=== PATIENT | female | born 1925 | race Caucasian/White ===

== ENCOUNTER 2017-03-17 21:42 | Inpatient (IN) ==
--- NOTE | 2017-03-17 22:19 | Emergency Department Note ---
Disposition Clinical Impression: Small bowel obstruction Inguinal hernia unilateral, non-recurrent Qualifiers: Obstruction and gangrene presence: with obstruction but without gangrene Recurrence: non-recurrent Qualified Code(s): K40.30 - Unilateral inguinal hernia , with obstruction, without gangrene, not specified as recurrent Disposition: Admitted As Inpatient Condition: Fair Time of Disposition: 05:28 Abdominal Pain HPI - General Chief Complaint: ED Abdominal Pain Stated Complaint: lower abdominal pain Time Seen by Provider: 03/17/17 21:55 Source: patient Nursing Notes Reviewed: Yes Vital Signs Reviewed: Yes - History of Present Illness HPI Narrative: Mrs. Sharp, 89-year-old female, presents from home for evaluation of abdominal pain and right lower quadrant "bump." Patient notes she had a [employer] salad this afternoon after which she had nausea and abdominal cramping. After this, she noticed a bump below her right inguinal ligament which was painful to touch. She otherwise has had no change in bowel or bladder , no fever, no chills. PMH: Hypertension Abdominal surgical history: Hysterectomy status post uterine prolapse. Pain Scale: 9 - Related Data Allergies Allergy/AdvReac Type Severity Reaction Status Date / Time Sulfa (Sulfonamide Allergy Hallucinati Verified 03/17/17 21:53 Antibiotics) ng All systems ED: reviewed and negative except as stated. Abdominal Pain PMH - Past Medical History Medical history: Reports: hypertension Female Surgical History: Reports: hysterectomy Psychiatric history: Reports: no psych history - Social History Smoking status: Never smoker Alcohol use: Reports: none Drug use: Reports: none Physical Exam Vital Signs Reviewed General: Patient is alert, oriented, and in no acute distress. HEENT: No facial asymmetry. Head is normocephalic and atraumatic. PERRL, EOMI. mucosa moist. Trachea midline. Cardiovascular: Heart regular rate and rhythm without clicks, rubs, gallops, or murmurs. No JVD. PMI nondisplaced. Respiratory: Symmetric chest rise with good respiratory effort. Bilateral breath sounds are clear without wheezing, crackles, or rhonchi. Abdomen: Bowel sounds present hyperactive x-4 quadrants. Abdomen is soft, nondistended, and nontender. No organomegaly noted. Palpable femoral hernia on the right side which is taut, painful, not reducible, bowel sounds present within. Psych: Patient's affect is appropriate for situation. - General Limitations: no limitations General appearance: alert Course Course Narrative: Patient's physical exam is concerning for incarcerated right femoral hernia. She has never noticed before, bowel sounds are present, it is painful to palpation, taut, and nonreducible. CT abdomen and pelvis with IV and oral contrast is concerning for incarcerated right femoral hernia as well as small bowel obstruction. Patient is not having any nausea or vomiting at this time. She remains comfortable. I discussed the patient with the on-call general surgeon, Dr. Swain, who agrees to accept the patient with plan to take her to the operatory theater tonight. I discussed all findings as well as potential surgical plan with patient and her daughter and granddaughter at bedside. Discussed in detail the pathophysiology of incarcerated hernia versus strangulate hernia as well as small bowel obstruction. I answered all her questions since they have no additional questions or concerns at this time. Abdomen/Pelvis CT 03/18/17 01:00 IMPRESSION: Incarcerated right femoral hernia containing a loop of small bowel with associated upstream small bowel obstruction. The upstream small bowel measures up to 3.2 cm in diameter with air-fluid levels. D/ / Hong Michael MD / Hong Michael MD Interpreting Provider: Hong Michael MD Vital Signs Temperature 97.9 F 03/17/17 21:49 Pulse Rate 71 03/17/17 21:49 Respiratory Rate 18 03/17/17 21:49 Blood Pressure 161/70 03/17/17 21:49 O2 Sat by Pulse Oximetry 97 03/17/17 21:49 Temperature 97.8 F 03/18/17 04:12 Pulse Rate 65 03/18/17 04:12 Respiratory Rate 17 03/18/17 04:12 Blood Pressure 157/75 03/18/17 04:12 O2 Sat by Pulse Oximetry 98 03/18/17 04:12 Oxygen Delivery Oxygen Delivery Room Air Abdominal Pain - Lab Data Result diagrams: 03/17/17 23:08 03/17/17 23:08 Lab Results 03/17/17 03/17/17 03/17/17 Range/Units 22:08 23:08 23:08 WBC 8.3 (4.3-11.1) K/mcL RBC 4.64 (3.82-4.97) M/mcL Hgb 14.7 (11.5-15.4) g/dL Hct 40.9 (35.3-44.9) % MCV 88.1 (83.0-100.0) fL MCH 31.7 (28.0-33.3) pg MCHC 35.9 H (31.6-35.5) g/dL RDW 12.4 (11.5-14.5) % Plt Count 263 (140-400) K/mcL MPV 9.8 (9.4-12.4) fL Immature Gran % 0.6 (0-4) % Seg Neutrophils % 88.7 % Lymphocytes % 6.9 % Monocytes % 3.1 % Eosinophils % 0.2 % Basophils % 0.5 % Neutrophils # 7.4 (1.6-8.9) K/mcL Lymphocytes # 0.6 (0.6-4.6) K/mcL Monocytes # 0.3 (0.0-1.3) K/mcL Eosinophils # 0.0 (0.0-0.6) K/mcL Basophils # 0.0 (0.0-0.2) K/mcL Sodium 137 (136-145) mEq/L Potassium 3.4 L (3.5-4.5) mEq/L Chloride 102 (98-109) mEq/L Carbon Dioxide 22 (19-29) mEq/L BUN 20 (7-20) mg/dL Creatinine 0.96 (0.57-1.11) mg/dL Est GFR ( Amer) > 60 (> 60) Est GFR (Non-Af Amer) 55 L (> 60) BUN/Creatinine Ratio 21 (6-26) Glucose 134 H (70-99) mg/dL Calculated Osmolality 289 (280-300) Lactic Acid (0.5-2.2) mmol/L Calcium 9.4 (8.6-10.8) mg/dL Total Bilirubin 0.5 (0.2-1.2) mg/dL Direct Bilirubin 0.2 (0.0-0.5) mg/dL Indirect Bilirubin 0.3 (0.0-1.2) mg/dL AST 28 (5-34) Units/L ALT 17 (0-55) Units/L Alkaline Phosphatase 101 (38-126) Units/L Serum Total Protein 7.9 (6.0-8.3) g/dL Albumin 4.2 (3.5-5.0) g/dL Globulin 3.7 H (2.4-3.5) g/dL Albumin/Globulin Ratio 1.1 (1.1-2.2) Lipase 40 (8-78) Units/L Urine Color Yellow (Yellow) Urine Clarity Clear (Clear) Urine pH 7.0 (5.0-8.0) pH Units Ur Specific [place] 1.021 (1.010-1.025) Urine Protein Negative (Neg-Trace) mg/dL Urine Glucose (UA) Normal (Normal) mg/dL Urine Ketones 40 H (Negative) mg/dL Urine Blood Small H (Negative) Urine Nitrite Negative (Negative) Urine Bilirubin Negative (Negative) Urine Urobilinogen Normal (Normal) mg/dL Ur Leukocyte Esterase Moderate H (Negative) Urine Microscopic RBC 0-3 (0-3) per hpf Urine Microscopic WBC 15-30 H (0-3) per hpf Ur Renal Epithelial Cell Few (None-Few) per hpf Urine Bacteria Few (None-Few) per hpf Ur Culture Indicated? YES A (NO) 03/17/17 Range/Units 23:08 WBC (4.3-11.1) K/mcL RBC (3.82-4.97) M/mcL Hgb (11.5-15.4) g/dL Hct (35.3-44.9) % MCV (83.0-100.0) fL MCH (28.0-33.3) pg MCHC (31.6-35.5) g/dL RDW (11.5-14.5) % Plt Count (140-400) K/mcL MPV (9.4-12.4) fL Immature Gran % (0-4) % Seg Neutrophils % % Lymphocytes % % Monocytes % % Eosinophils % % Basophils % % Neutrophils # (1.6-8.9) K/mcL Lymphocytes # (0.6-4.6) K/mcL Monocytes # (0.0-1.3) K/mcL Eosinophils # (0.0-0.6) K/mcL Basophils # (0.0-0.2) K/mcL Sodium (136-145) mEq/L Potassium (3.5-4.5) mEq/L Chloride (98-109) mEq/L Carbon Dioxide (19-29) mEq/L BUN (7-20) mg/dL Creatinine (0.57-1.11) mg/dL Est GFR ( Amer) (> 60) Est GFR (Non-Af Amer) (> 60) BUN/Creatinine Ratio (6-26) Glucose (70-99) mg/dL Calculated Osmolality (280-300) Lactic Acid 0.9 (0.5-2.2) mmol/L Calcium (8.6-10.8) mg/dL Total Bilirubin (0.2-1.2) mg/dL Direct Bilirubin (0.0-0.5) mg/dL Indirect Bilirubin (0.0-1.2) mg/dL AST (5-34) Units/L ALT (0-55) Units/L Alkaline Phosphatase (38-126) Units/L Serum Total Protein (6.0-8.3) g/dL Albumin (3.5-5.0) g/dL Globulin (2.4-3.5) g/dL Albumin/Globulin Ratio (1.1-2.2) Lipase (8-78) Units/L Urine Color (Yellow) Urine Clarity (Clear) Urine pH (5.0-8.0) pH Units Ur Specific [place] (1.010-1.025) Urine Protein (Neg-Trace) mg/dL Urine Glucose (UA) (Normal) mg/dL Urine Ketones (Negative) mg/dL Urine Blood (Negative) Urine Nitrite (Negative) Urine Bilirubin (Negative) Urine Urobilinogen (Normal) mg/dL Ur Leukocyte Esterase (Negative) Urine Microscopic RBC (0-3) per hpf Urine Microscopic WBC (0-3) per hpf Ur Renal Epithelial Cell (None-Few) per hpf Urine Bacteria (None-Few) per hpf Ur Culture Indicated? (NO) Attestation Statement - Attestation Attestation: I, Ilan Curiel MD, personally evaluated this patient and discussed their management with the resident physician. I reviewed the resident's note and agree with the documented findings, medical decision making, and plan of care. 89-year-old female presents to the emergency department with a complaint of generalized lower abdominal pain and nausea which started about 2 hours prior to arrival. She also complains of a firm tender knot in the right inguinal region. She has never noticed this before. Patient states the pain started about an hour after she ate a large salad. She has had some dry heaves. Patient states that she had a normal bowel movement this morning. No melena, hematemesis, or hematochezia. No hematuria or dysuria. No flank pain. On examination patient is a well-developed thin elderly female in no acute distress but does appear to be in moderate discomfort. She is alert and oriented 3. There is no cyanosis or diaphoresis. Breath sounds are clear and equal bilaterally. Heart regular rate and rhythm. Abdomen is soft with increased bowel sounds. Mild to moderate diffuse tenderness. There is a firm tender incarcerated right inguinal hernia which I was unable to reduce with direct pressure. Labs reviewed. CT of the abdomen and pelvis with IV and oral contrast: Incarcerated right femoral hernia containing a loop of small bowel with associated upstream small bowel obstruction. The upstream small bowel measures up to 3.2 cm in diameter with air-fluid levels. The surgeon on-call, Dr. Lam, was consulted and will see the patient in the emergency department.
[2017-03-17] MEDS ORDERED: *HR* Morphine 2 MG/ML SYRINGE IVP ONE (22:57)
[2017-03-17 23:10] LABS: Bilirubin,Urine Negative (Negative); Blood,Urine Small (Negative); Clarity,Urine Clear (Clear); Color,Urine Yellow (Yellow); Glucose,Urine (UA) Normal (Normal); Ketones,Urine 40 mg/dL (Negative); Leukocyte Esterase,Urine Moderate (Negative); Nitrite,Urine Negative (Negative); Protein,Urine Negative (Neg-Trace); Specific Gravity,Urine 1.021 (1.010-1.025); Urobilinogen,Urine Normal (Normal)
[2017-03-17] MEDS: Ondansetron 4 MG/2 ML VIAL IVP ONE (23:11)
[2017-03-17 23:15] LABS: Basophils % 0.5 %; Eosinophils % 0.2 %; Hematocrit 40.9 % (35.3-44.9); Hemoglobin 14.7 g/dL (11.5-15.4); Immature Granulocytes % 0.6 % (0-4); Lymphocytes # 0.6 K/mcL (0.6-4.6); Lymphocytes % 6.9 %; Mean Corpuscular HGB Conc 35.9 g/dL (31.6-35.5); Mean Corpuscular Hemoglobin 31.7 pg (28.0-33.3); Mean Corpuscular Volume 88.1 fL (83.0-100.0); Mean Platelet Volume 9.8 fL (9.4-12.4); Monocytes # 0.3 K/mcL (0.0-1.3); Monocytes % 3.1 %; Neutrophils # 7.4 K/mcL (1.6-8.9); Platelet Count 263 K/mcL (140-400); Red Blood Count 4.64 M/mcL (3.82-4.97); Red Cell Distribution Width 12.4 % (11.5-14.5); Segmented Neutrophils % 88.7 %
[2017-03-17 23:23] LABS: Renal Epithelial Cells,Urine Few per hpf (None-Few); WBC,Urine 15-30 per hpf (0-3)
[2017-03-17 23:24] LABS: Bacteria,Urine Few per hpf (None-Few); RBC,Urine 0-3 per hpf (0-3)
--- NOTE | 2017-03-17 23:54 | General Surg History&Physical ---
Date of Encounter: 03/17/17 Time of Encounter: 23:52 Assessment and Plan (1) Inguinal hernia unilateral, non-recurrent Current Visit: Yes Status: Acute 89F with incarcerated inguinal hernia on the right; no overlying skin changes; - NPO - IVF - abx - CT scan to assess for evidence of ischemia - plan for OR for lap hernia repair possible open The assessment and plan as outlined above was discussed with the patient and/or family members who expressed understanding and agreement. All questions were answered. Qualifiers: Obstruction and gangrene presence: without obstruction or gangrene Recurrence: non-recurrent Qualified Code(s): K40.90 - Unilateral inguinal hernia, without obstruction or gangrene, not specified as recurrent History of Present Illness Chief complaint: Right groin pain HPI: Ms. Sharp is a 89 year old female with PMH significant for HTN who presents with sudden onset of R groin pain and small lump in her Right groin. The pain started after dinner. It is localized to the right groin with no associated nausea, vomiting, or obstructive symptoms; She does report mild abdominal pain within lower abdomen. No fevers, chills, chest pain nor shortness of breath. Due to the pain, the patient came to the ED for further evaluation. Of note, this is the first time the patient has ever had pain like this. Past Med Surg Social Fam HX - Past Medical History Medical history: hypertension Psychiatric history: no psych history - Past Surgical History Surgical History: hysterectomy, other (vaginal/uterine prolapse) - Social History Smoking Status: Never smoker Alcohol use: none Drug use: none Medications and Allergies 3 Allergy/AdvReac Type Severity Reaction Status Date / Time Sulfa (Sulfonamide Allergy Hallucinati Verified 03/17/17 21:53 Antibiotics) ng Review of Systems All systems PM: A 10-system review of systems was performed and is negative for pertinent findings except as documented above in the HPI. General Surgery Exam Initial Vital Signs Temp Pulse Resp BP Pulse Ox 97.9 F 71 18 161/70 97 03/17/17 21:49 03/17/17 21:49 03/17/17 21:49 03/17/17 21:49 03/17/17 21:49 - General physical appearance well developed, well nourished, moderate pain - Eyes normal ocular movement - Respiratory normal expansion, normal respiratory effort, clear to auscultation - Cardiovascular Cardiovascular exam: Present: RRR - Abdomen Abdomen general surgery: Present: soft, tender Abdominal Tenderness: Present: RLQ, LLQ, suprapubic Hernia: Present: incarcerated, inguinal (no overlying skin changes; ) - Genitourinary Present: normal external genitalia - Integumentary Integumentary general surgery: Present: warm and dry, other (no erythema or overlying skin changes along groin) - Neurologic Present: CN 2-12 grossly intact - Psychiatric Psychiatric general surgery: Present: A&Ox3 Results - Labs 03/17/17 23:08 Abnormal lab results MCHC 35.9 g/dL (31.6-35.5) H 03/17/17 23:08 Urine Ketones 40 mg/dL (Negative) H 03/17/17 22:08 Urine Blood Small (Negative) H 03/17/17 22:08 Ur Leukocyte Esterase Moderate (Negative) H 03/17/17 22:08 Urine Microscopic WBC 15-30 per hpf (0-3) H 03/17/17 22:08 Ur Culture Indicated? YES (NO) A 03/17/17 22:08 All other labs normal. - Imaging CT scan - abdomen: pending CT scan - pelvis: pending
[2017-03-17] MEDS ORDERED: Ondansetron 4 MG/2 ML VIAL IVP PRN (23:57)
[2017-03-17] MEDS ORDERED: *HR* Morphine 2 MG/ML SYRINGE IVP PRN (23:57)
[2017-03-18 00:17] LABS: Alanine Aminotransferase 17 Units/L (0-55); Albumin 4.2 g/dL (3.5-5.0); Albumin/Globulin Ratio 1.1 (1.1-2.2); Alkaline Phosphatase 101 Units/L (38-126); Aspartate Amino Transferase 28 Units/L (5-34); BUN/Creatinine Ratio 21 (6-26); Bilirubin,Direct 0.2 mg/dL (0.0-0.5); Bilirubin,Indirect 0.3 mg/dL (0.0-1.2); Bilirubin,Total 0.5 mg/dL (0.2-1.2); Blood Urea Nitrogen 20 mg/dL (7-20); Calcium 9.4 mg/dL (8.6-10.8); Carbon Dioxide 22 mEq/L (19-29); Chloride 102 mEq/L (98-109); Globulin 3.7 g/dL (2.4-3.5); Glucose 134 mg/dL (70-99); Lipase 40 Units/L (8-78); Osmolality,Calculated 289 (280-300); Potassium 3.4 mEq/L (3.5-4.5); Sodium 137 mEq/L (136-145); Total Protein 7.9 g/dL (6.0-8.3); eGFR For African Americans > 60 (> 60); eGFR For Non-African Americans 55 (> 60)
[2017-03-18] MEDS: Piperacillin/Tazobactam 3.375 GM in D5% in Water (Mini-Bag+) 100 ML IVPB SCH ×3 (01:11→16:33)
[2017-03-18] MEDS ORDERED: *HR* Enoxaparin 40 MG/0.4 ML SYRINGE SQ SCH (06:00)
--- NOTE | 2017-03-18 06:28 | Anesthesia Evaluation PreOp ---
Date of Encounter: 03/18/17 Time of Encounter: 06:26 - Past History Planned Operation: Open Right Inguinal Hernia Repair Cardiac History: HTN Anesthesia History: Past Anesthesia (hysterectomy, other (vaginal/uterine prolapse)) : No Alcohol Use: none Drug use: none Medications and Allergies 3 Allergy/AdvReac Type Severity Reaction Status Date / Time Sulfa (Sulfonamide Allergy Hallucinati Verified 03/17/17 21:53 Antibiotics) ng - Meds/Allergy Pre-op Review Medications Reviewed: Yes Allergies Reviewed: Yes Beta Blockers on Current Med List: No Anesthesia Results - Labs 03/17/17 23:08 03/17/17 23:08 Anesthesia Exam O2 Sat Height 1.57 m Weight 56.1 kg Weight 63.503 kg O2 Sat by Pulse Oximetry 98 O2 Sat by Pulse Oximetry 96 O2 Sat by Pulse Oximetry 97 O2 Sat by Pulse Oximetry 97 Vital Signs Temp Pulse Resp BP Pulse Ox 97.9 F 71 18 161/70 97 03/17/17 21:49 03/17/17 21:49 03/17/17 21:49 03/17/17 21:49 03/17/17 21:49 Height: 5'2'' Weight: 123# NPO (# of Hours): > 8 hrs Pain Scale: 0 Pain Scale Used: Numeric (1 - 10)
[2017-03-18] MEDS ORDERED: *HR* Propofol 200 MG/20 ML VIAL IVP ONE (06:38)
[2017-03-18] MEDS ORDERED: *HR* FentaNYL (PF) 100 MCG/2 ML VIAL ONE (06:38)
[2017-03-18] MEDS ORDERED: *HR* Succinylcholine 200 MG/10 ML VIAL IVP ONE (06:39)
[2017-03-18] MEDS ORDERED: Lidocaine -MPF 2% 2 ML VIAL ONE (06:39)
[2017-03-18] MEDS ORDERED: *HR* Rocuronium Bromide 50 MG/5 ML VIAL ONE (06:39)
[2017-03-18] MEDS ORDERED: Bupivacaine/EPI 1:200k 0.5%PF 10 ML VIAL ONE (06:40)
--- NOTE | 2017-03-18 07:27 | Anesthesia Evaluation PreOp ---
Date of Encounter: 03/18/17 Time of Encounter: 07:19 - Past History Planned Operation: Incarcerated Hernia Repair Cardiac History: HTN Pulmonary History: Denies Any Significant HX PEGA DEVELOPER History: Denies Any Significant HX Other Medical History: Denies Any Significant HX Anesthesia History: No Prior Anesthetic Complications, Past Anesthesia ( hysterectomy) Alcohol Use: none Drug use: none Medications and Allergies amLODIPine [Norvasc] 7.5 mg PO DAILY 03/18/17 [History] 3 Allergy/AdvReac Type Severity Reaction Status Date / Time Sulfa (Sulfonamide Allergy Hallucinati Verified 03/17/17 21:53 Antibiotics) ng - Meds/Allergy Pre-op Review Medications Reviewed: Yes Allergies Reviewed: Yes Beta Blockers on Current Med List: No Anesthesia Results - Labs 03/17/17 23:08 03/17/17 23:08 - Imaging EKG: report reviewed (03/18/2017 SR, occasional PVC's, borderline LAD, low QRS in precordial leads) Anesthesia Exam Vital Signs/O2 Sat, Most Current Temp Pulse Resp BP Pulse Ox 98.3 F 65 16 148/66 93 03/18/17 06:58 03/18/17 06:58 03/18/17 06:58 03/18/17 06:58 03/18/17 06:58 Height: 5'2''/1.57 m Weight: 123 lbs/56.1 kg NPO (# of Hours): 8 Pain Scale: 0 Pain Scale Used: Numeric (1 - 10) - HEENT Pupil (Motor): EOMI Mallampati: II Teeth: Edentulous Oral Opening: Greater than 3 - PEGA DEVELOPER LOC: Oriented PEGA DEVELOPER Motor: Normal RUE, Normal LUE, Normal RLE, Normal LLE, Normal Face PEGA DEVELOPER Sensory: Normal: RUE, LUE, RLE, LLE, Face - Cardiac Rhythm: Regular Murmur: Systolic - Pulmonary Breath Sounds: bilateral Clear Respiratory Effort: Symmetrical Anesthesia Assess/Plan ASA Score: 2, E Modified [place] Scale for Level of Consciousness: Cooperative, oriented, and tranquil Anesthetic Plan: General Monitoring Plan: Standard Monitors Recovery Plan: PACU
[2017-03-18] MEDS ORDERED: *HR* Morphine 10 MG/ML VIAL ONE (07:36)
[2017-03-18] MEDS ORDERED: Lidocaine -MPF 4% 5 ML AMPUL ONE (07:45)
[2017-03-18] MEDS ORDERED: Dexamethasone 4 MG/ML VIAL ONE (07:45)
[2017-03-18] MEDS ORDERED: Ondansetron 4 MG/2 ML VIAL ONE (07:45)
[2017-03-18] MEDS ORDERED: EPHEDrine 50 MG/ML VIAL ONE (07:47)
[2017-03-18] MEDS ORDERED: *HR* Phenylephrine 10 MG/ML VIAL ONE (07:47)
[2017-03-18] MEDS ORDERED: Ondansetron 4 MG/2 ML VIAL IVP ONE (08:02)
[2017-03-18] MEDS ORDERED: *HR* Morphine 2 MG/ML SYRINGE IVP PRN (08:02)
--- NOTE | 2017-03-18 08:52 | Operative Note ---
Date of procedure: 03/18/17 Pre-op diagnosis: Incarcerated femoral hernia Post-op diagnosis: other (Incarcerated femoral hernia with necrotic small bowel) Procedure: #1 exploratory laparotomy #2 small bowel resection #3 repair of right femoral hernia Anesthesia: ISATU Surgeon: Tacos Starks Estimated blood loss (cc): 20 Specimen: Necrotic small bowel Condition: stable Disposition: PACU Procedure in Detail: After informed consent patient is taken to the major operative suite and placed in supine position and given adequate general anesthetic. The groins and abdomen were prepped and draped in sterile fashion utilizing ChloraPrep standard draping techniques. Timeout was taken patient was identified. I made an oblique incision and dissected down to the incarcerated femoral hernia. I opened the femoral hernia sac. The small bowel was completely necrotic. I then made a lower abdominal midline incision and entered the abdominal cavity. There was a complete bowel obstruction at the level of the femoral hernia. I gently dilated the opening of the hernia with my index finger and I was able to reduce the necrotic small bowel back into the abdomen without perforating it. I then divided the small bowel proximal and distal to the area of necrosis with HEBERT and I divided the mesentery clamps and hemostatic ligatures. HEBERT was then used to create an anastomosis between the antimesenteric portion of the proximal and distal small bowel. The resulting enterotomy was closed with a TA 60. I circumferentially reinforced the anastomosis with interrupted 3-0 silk. The mesentery was closed with interrupted 3-0 silk. I performed a Javon's ligament repair suturing the inguinal ligament to Javon' s ligament obliterating the space of the femoral hernia was located. Hernia repair was performed with 2 stitches of 0 Nurolon. This completely obliterated the space. The lateral wall of the bladder was involved in the hernia sac and the thigh. This appeared to just be the peritoneal coverage on the bladder and the bladder did not appear to be entered. I closed the peritoneum in 2 layers with interrupted Vicryl. There was no spillage of urine. Any I do not think the bladder was entered. The groin incision was then closed with interrupted Vicryl in the midline was closed with looped 0 PDS and Vicryl. The skin was closed with skin clips. She tolerated the procedure well.
[2017-03-18] MEDS: Ondansetron 4 MG/2 ML VIAL IVP ONE (09:03)
--- NOTE | 2017-03-18 09:17 | Anesthesia Evaluation Post Op ---
Date of Encounter: 03/18/17 Time of Encounter: 09:16 - Vital Signs Vital Signs: Vital Signs/O2 Sat/Glucose, Most Recent Temp Pulse Resp BP Pulse Ox 98.8 F 75 15 158/75 96 03/18/17 08:52 03/18/17 09:12 03/18/17 09:12 03/18/17 09:12 03/18/17 09:12 - Lungs Lungs: Clear Ascult./Percussion - Airway Airway: Non-obstructed - Cardiovascular Regular Rate - Mental Status Mental Status: Alert & Oriented, Answers Appropriately - Pain Pain Scale: 0 Pain Scale used: Numeric (1 - 10) - Nausea Vomiting Nausea Vomiting: Not Present - Hydration Hydration: NPO - Discharge PostOp Status: Transfer Patient to floor
[2017-03-18] MEDS ORDERED: 0.9 % Sodium Chloride 1,000 ML ONE (11:27)
--- NOTE | 2017-03-18 17:00 | Electrocardiograph Report ---
[place] [id number] Test Date: 2017-03-18 Pat Name: Tanya Sharp Department: 103 Room: 3A11 Gender: F [place] Clerk: : [id number] Requested By: Tacos Starks Order Number: [id number] Reading MD: Eliz Donovan Measurements Intervals Dyke Rate: 61 P: 32 SD: 196 QRS: -22 QRSD: 93 T: 64 QT: 426 QTc: 430 Interpretive Statements SINUS RHYTHM BORDERLINE LEFT AXIS DEVIATION [QRS AXIS < -20] Electronically Signed On 03-18-2017 16:59:30 EDT by Eliz Donovan
[2017-03-19] MEDS: *HR* Morphine 2 MG/ML SYRINGE IVP PRN ×2 (00:06→14:00)
[2017-03-19] MEDS: 0.9 % Sodium Chloride 1,000 ML IVC SCH ×2 (00:06→14:01)
[2017-03-19] MEDS: Piperacillin/Tazobactam 3.375 GM in D5% in Water (Mini-Bag+) 100 ML IVPB SCH ×3 (00:07→16:12)
[2017-03-19] MEDS ORDERED: *HR* Enoxaparin 30 MG/0.3 ML SYRINGE SQ SCH (06:00)
[2017-03-19] MEDS: *HR* OxyCODONE/APAP 5/325 TABLET PO PRN ×2 (09:50→20:20)
[2017-03-19 11:36] LABS: Calcium 8.4 mg/dL (8.6-10.8); Potassium 3.6 mEq/L (3.5-4.5)
--- NOTE | 2017-03-19 13:20 | General Surgery Progress Note ---
<SundayDaniella Casey - Last Filed: 03/19/17 13:15> Date of Encounter: 03/19/17 Time of Encounter: 11:00 - Assessment and Plan (1) Inguinal hernia unilateral, non-recurrent Current Visit: Yes Status: Acute POD one: #1 exploratory laparotomy #2 small bowel resection #3 repair of right femoral hernia 03/18/2017 by Levon Starks Incisions are clean, dry, and intact. Bowel sounds are noted. Patient request ice chips. Plan: 1. Cover incisions with dry dressing tape to secure for comfort. 2. 300 mL clear liquids per shift 3. Out of bed to chair TID with assistance 4. Continue supportive care and discomfort management 5. Continue G.I. prophylaxis 6. DVT prophylaxis heparin 7Q 5000 units twice daily 7. Resume amlodipine 8. Continue IV antibiotics 9. PT/OT for discharge planning Qualifiers: Obstruction and gangrene presence: with obstruction but without gangrene Recurrence: non-recurrent Qualified Code(s): K40.30 - Unilateral inguinal hernia, with obstruction, without gangrene, not specified as recurrent (2) Small bowel obstruction Current Visit: Yes Status: Acute See above (3) Decreased activity tolerance Current Visit: Yes Status: Acute Consult PT/OT for activity, safety, and DC planning. (4) DVT prophylaxis Current Visit: Yes Status: Acute Begin heparin injections 5000 units subacute tonight. EPCDs while in bed. Ambulate TID per PT and OT recommendations. Out of bed 3 times daily to the chair with assistance. Subjective Patient reports: no new complaints, feels better, still having pain, pain is less, tolerating liquids well, voiding w/o difficulty, no flatus, no bowel movement, afebrile Objective Vital Signs - Last 8 Hours Temp Pulse Resp BP Pulse Ox 03/19/17 11:00 97.7 F 75 16 148/79 91 03/19/17 06:22 98.3 F 85 16 145/74 92 Intake and Output 03/18/17 03/19/17 03/19/17 23:59 07:59 15:59 Intake Total 100 / 100 200 / 200 0 / 0 Output Total 350 / 350 0 / 0 450 / 450 Balance -250 / -250 200 / 200 -450 / -450 Intake: IV Fluids 100 / 100 200 / 200 Zosyn 3.375 GM In Dextrose 5% ( 100 / 100 200 / 200 Minibag+) 100 ML 100 ML @ 25 mls/hr IVPB Q8HR [facility] Rx#: [id number] Oral 0 / 0 0 / 0 0 / 0 Output: Urine 350 / 350 0 / 0 450 / 450 Other: Meal NPO Percent of Meal Consumed 0% Blood Glucose* 126 137 152 - General physical appearance no distress, moderate pain - Eyes normal ocular movement - ENT atraumatic, normocephalic - Neck Neck exam: no masses, trachea midline, no venous distension - Respiratory normal expansion, normal respiratory effort, clear to auscultation - Cardiovascular Cardiovascular exam: Present: RRR, no murmurs/rubs/gallops - Abdomen Abdomen: Present: bowel sounds present, soft, tender (expected post-operative) Hernia: none - Incision Incision: Present: clean and dry, intact - Integumentary no rash, no growths - Neurologic CN 2-12 grossly intact, normal coordination, normal sensation - Musculoskeletal normal gait, normal posture - Psychiatric oriented to time, oriented to person, oriented to place, speech is normal, memory intact - Labs 03/17/17 23:08 03/19/17 10:49 Diabetes panel 03/19/17 Range/Units 10:49 Sodium 134 L (136-145) mEq/L Potassium 3.6 (3.5-4.5) mEq/L Chloride 101 (98-109) mEq/L Carbon Dioxide 23 (19-29) mEq/L BUN 32 H D (7-20) mg/dL Creatinine 1.43 H (0.57-1.11) mg/dL Glucose 141 H (70-99) mg/dL Calcium 8.4 L (8.6-10.8) mg/dL Calcium panel 03/19/17 Range/Units 10:49 Calcium 8.4 L (8.6-10.8) mg/dL Pituitary panel 03/19/17 Range/Units 10:49 Sodium 134 L (136-145) mEq/L Potassium 3.6 (3.5-4.5) mEq/L Chloride 101 (98-109) mEq/L Carbon Dioxide 23 (19-29) mEq/L BUN 32 H D (7-20) mg/dL Creatinine 1.43 H (0.57-1.11) mg/dL Glucose 141 H (70-99) mg/dL Calcium 8.4 L (8.6-10.8) mg/dL Adrenal panel 03/19/17 Range/Units 10:49 Sodium 134 L (136-145) mEq/L Potassium 3.6 (3.5-4.5) mEq/L Chloride 101 (98-109) mEq/L Carbon Dioxide 23 (19-29) mEq/L BUN 32 H D (7-20) mg/dL Creatinine 1.43 H (0.57-1.11) mg/dL Glucose 141 H (70-99) mg/dL Calcium 8.4 L (8.6-10.8) mg/dL - VTE Documentation of Mechanical Device: Intermittent pneumatic compression device Consult Discharge Plan - Plan Referrals: Priyanka Roach, SOCIAL INSURANCE ANALYST [Primary Care Provider] - <Tacos Starks - Last Filed: 03/21/17 11:34> Date of Encounter: 03/19/17 Objective Vital Signs - Last 8 Hours Temp Pulse Resp BP Pulse Ox 03/21/17 10:02 16 93 03/21/17 05:35 98.3 F 79 16 109/65 93 03/21/17 03:53 18 90 Intake and Output 03/20/17 03/21/17 03/21/17 23:59 07:59 15:59 Intake Total 785 / 785 100 / 100 1240 / 1240 Output Total 200 / 200 0 / 0 600 / 600 Balance 585 / 585 100 / 100 640 / 640 Intake: IV Fluids 785 / 785 100 / 100 1000 / 1000 0.9 % Sodium Chloride 1,000 ML 685 / 685 1000 / 1000 @ 75 mls/hr IVC .[id number] [facility] Rx #:[id number] Zosyn 3.375 GM In Dextrose 5% ( 100 / 100 100 / 100 Minibag+) 100 ML 100 ML @ 25 mls/hr IVPB Q12H [facility] Rx#: [id number] Oral 0 / 0 0 / 0 240 / 240 Output: Urine 200 / 200 0 / 0 600 / 600 Other: Meal Clear # Bowel Movements 0 Weight 56.3 kg Patient Weight 03/21/17 23:59 Weight 56.3 kg - Labs 03/17/17 23:08 03/21/17 03:51 Diabetes panel 03/21/17 Range/Units 03:51 Sodium 132 L (136-145) mEq/L Potassium 3.1 L (3.5-4.5) mEq/L Chloride 105 (98-109) mEq/L Carbon Dioxide 21 (19-29) mEq/L BUN 13 D (7-20) mg/dL Creatinine 0.68 D (0.57-1.11) mg/dL Glucose 123 H (70-99) mg/dL Calcium 7.7 L (8.6-10.8) mg/dL Calcium panel 03/21/17 Range/Units 03:51 Calcium 7.7 L (8.6-10.8) mg/dL Pituitary panel 03/21/17 Range/Units 03:51 Sodium 132 L (136-145) mEq/L Potassium 3.1 L (3.5-4.5) mEq/L Chloride 105 (98-109) mEq/L Carbon Dioxide 21 (19-29) mEq/L BUN 13 D (7-20) mg/dL Creatinine 0.68 D (0.57-1.11) mg/dL Glucose 123 H (70-99) mg/dL Calcium 7.7 L (8.6-10.8) mg/dL Adrenal panel 03/21/17 Range/Units 03:51 Sodium 132 L (136-145) mEq/L Potassium 3.1 L (3.5-4.5) mEq/L Chloride 105 (98-109) mEq/L Carbon Dioxide 21 (19-29) mEq/L BUN 13 D (7-20) mg/dL Creatinine 0.68 D (0.57-1.11) mg/dL Glucose 123 H (70-99) mg/dL Calcium 7.7 L (8.6-10.8) mg/dL - Attending Attestation I have personally performed a face to face evaluation on this patient. I have reviewed and agree with the care plan. History and Exam by me shows: The patient is seen and evaluated and the findings were discussed with the clinical nurse practitioner. She is progressing well after small bowel resection and repair femoral hernia. Tacos Starks MD FACS
[2017-03-19] MEDS ORDERED: Simethicone 80 MG TAB.CHEW PO PRN (13:21)
[2017-03-19] MEDS: amLODIPine 5 MG TABLET PO SCH (14:00)
[2017-03-19] MEDS ORDERED: Piperacillin/Tazobactam 3.375 GM in D5% in Water (Mini-Bag+) 100 ML IVPB SCH (17:00)
[2017-03-19] MEDS: *HR* Heparin 5,000 UNIT/ML VIAL SQ SCH (17:54)
[2017-03-19] MEDS: Pantoprazole 40 MG VIAL IVP SCH (17:54)
[2017-03-20] MEDS: *HR* OxyCODONE/APAP 5/325 TABLET PO PRN ×3 (01:46→22:01)
[2017-03-20] MEDS: Piperacillin/Tazobactam 3.375 GM in D5% in Water (Mini-Bag+) 100 ML IVPB SCH ×2 (04:37→16:14)
[2017-03-20] MEDS: 0.9 % Sodium Chloride 1,000 ML IVC SCH ×2 (04:38→20:06)
[2017-03-20] MEDS: Pantoprazole 40 MG VIAL IVP SCH ×2 (04:40→18:55)
[2017-03-20] MEDS: *HR* Heparin 5,000 UNIT/ML VIAL SQ SCH ×2 (04:40→18:55)
[2017-03-20] MEDS: amLODIPine 5 MG TABLET PO SCH (08:51)
--- NOTE | 2017-03-20 09:32 | General Surgery Progress Note ---
<Karri Chand - Last Filed: 03/20/17 16:51> Date of Encounter: 03/20/17 Time of Encounter: 09:15 - Assessment and Plan (1) Inguinal hernia unilateral, non-recurrent Current Visit: Yes Status: Acute Patient is postop day 2. #1 exploratory laparotomy #2 small bowel resection #3 repair of right femoral hernia on 03/18/[address] Starks. Incision sites are clean, dry, and intact. Mild amount of serosanguineous drainage from the lower part of the incision extending into the RLQ. Normoactive bowel sounds in all 4 quadrants. Patient is currently on a clear liquid diet and is tolerating it well. Plan: -Advanced to clear liquid diets without restrictions -Protein supplements TID -Incentive spirometer every 1 hr while awake -Repeat AM labs -Out of bed to chair 3 times a day with assistance -Supportive care/discomfort management -GI prophylaxis -DVT prophylaxis: heparin subcutaneous 5000 every 12 hours. -Continue IV Zosyn 3.375. -Morphine 2 mg every 4 hours for pain control. Patient is currently on oxygen via nasal cannula. Patient's O2 saturation had dropped down from 96 to 91. Patient denies ever having any history of respiratory issues. She is a nonsmoker. O2 saturation is currently 93. Continue to monitor vital signs. Qualifiers: Obstruction and gangrene presence: with obstruction but without gangrene Recurrence: non-recurrent Qualified Code(s): K40.30 - Unilateral inguinal hernia, with obstruction, without gangrene, not specified as recurrent (2) Decreased activity tolerance Current Visit: Yes Status: Acute PT/OT has been consulted for activity, safety, and discharge planning. -Out of bed to chair 3 times per day with assistance. (3) Small bowel obstruction Current Visit: Yes Status: Acute (4) DVT prophylaxis Current Visit: Yes Status: Acute Patient is on heparin 5000 subcutaneous 12. Subjective Patient reports: no new complaints, feels better Narrative: Patient was seen and examined at bedside this morning. She states that she is feeling much better since her operation. Patient denies having any of the abdominal pain that she initially had when she first came in the hospital. Patient's only complaint is that she has some chest pain on deep inspiration, which she states that she has had since her operation. Patient denies having any pain near her incision site. Patient currently denies having any abdominal pain, nausea, vomiting, fever, chills, or shortness of breath. Patient is currently on a clear liquid, she states that she is tolerating it well. She has no other complaints at this time. Objective Vital Signs - Last 8 Hours Temp Pulse Resp BP Pulse Ox 03/20/17 06:45 97.9 F 76 14 111/60 93 03/20/17 04:29 98.0 F 84 15 138/72 93 Intake and Output 03/19/17 03/20/17 03/20/17 23:59 07:59 15:59 Intake Total 160 / 160 1000 / 1000 415 / 415 Output Total 250 / 250 0 / 0 Balance -90 / -90 1000 / 1000 415 / 415 Intake: IV Fluids 100 / 100 1000 / 1000 415 / 415 0.9 % Sodium Chloride 1,000 ML 1000 / 1000 315 / 315 @ 75 mls/hr IVC .[id number] [facility] Rx #:[id number] Zosyn 3.375 GM In Dextrose 5% ( 100 / 100 100 / 100 Minibag+) 100 ML 100 ML @ 25 mls/hr IVPB Q12H [facility] Rx#: [id number] Oral 60 / 60 0 / 0 Output: Urine 250 / 250 0 / 0 Other: Blood Glucose* 114 - General physical appearance well developed, no distress - Neck Neck exam: no masses, no bruits, trachea midline, no lymphadectomy, no venous distension - Respiratory normal expansion, normal respiratory effort - Cardiovascular Cardiovascular exam: Present: RRR, no murmurs/rubs/gallops - Abdomen Abdomen: Present: bowel sounds present, soft, non tender Additional Comments: Patient has a surgical incision site midline in the lower abdomen extending down into the right lower quadrant. Incision site is not tender, no redness, no purulent drainage. Small amount of serosanguineous drainage from the right lower border of the incision. - Labs 03/17/17 23:08 03/19/17 10:49 Diabetes panel 03/19/17 Range/Units 10:49 Sodium 134 L (136-145) mEq/L Potassium 3.6 (3.5-4.5) mEq/L Chloride 101 (98-109) mEq/L Carbon Dioxide 23 (19-29) mEq/L BUN 32 H D (7-20) mg/dL Creatinine 1.43 H (0.57-1.11) mg/dL Glucose 141 H (70-99) mg/dL Calcium 8.4 L (8.6-10.8) mg/dL Calcium panel 03/19/17 Range/Units 10:49 Calcium 8.4 L (8.6-10.8) mg/dL Pituitary panel 03/19/17 Range/Units 10:49 Sodium 134 L (136-145) mEq/L Potassium 3.6 (3.5-4.5) mEq/L Chloride 101 (98-109) mEq/L Carbon Dioxide 23 (19-29) mEq/L BUN 32 H D (7-20) mg/dL Creatinine 1.43 H (0.57-1.11) mg/dL Glucose 141 H (70-99) mg/dL Calcium 8.4 L (8.6-10.8) mg/dL Adrenal panel 03/19/17 Range/Units 10:49 Sodium 134 L (136-145) mEq/L Potassium 3.6 (3.5-4.5) mEq/L Chloride 101 (98-109) mEq/L Carbon Dioxide 23 (19-29) mEq/L BUN 32 H D (7-20) mg/dL Creatinine 1.43 H (0.57-1.11) mg/dL Glucose 141 H (70-99) mg/dL Calcium 8.4 L (8.6-10.8) mg/dL - VTE Documentation of Mechanical Device: Intermittent pneumatic compression device Consult Discharge Plan - Plan Referrals: Priyanka Roach, FOILING MACHINE ADJUSTER [Primary Care Provider] - <Tacos Starks - Last Filed: 03/21/17 11:40> Date of Encounter: 03/20/17 Objective Vital Signs - Last 8 Hours Temp Pulse Resp BP Pulse Ox 03/21/17 11:33 97.5 F L 66 14 120/68 94 03/21/17 10:02 16 93 03/21/17 05:35 98.3 F 79 16 109/65 93 03/21/17 03:53 18 90 Intake and Output 03/20/17 03/21/17 03/21/17 23:59 07:59 15:59 Intake Total 785 / 785 100 / 100 1240 / 1240 Output Total 200 / 200 0 / 0 600 / 600 Balance 585 / 585 100 / 100 640 / 640 Intake: IV Fluids 785 / 785 100 / 100 1000 / 1000 0.9 % Sodium Chloride 1,000 ML 685 / 685 1000 / 1000 @ 75 mls/hr IVC .[id number] [facility] Rx #:[id number] Zosyn 3.375 GM In Dextrose 5% ( 100 / 100 100 / 100 Minibag+) 100 ML 100 ML @ 25 mls/hr IVPB Q12H [facility] Rx#: [id number] Oral 0 / 0 0 / 0 240 / 240 Output: Urine 200 / 200 0 / 0 600 / 600 Other: Meal Clear # Bowel Movements 0 0 Weight 56.3 kg Patient Weight 03/21/17 23:59 Weight 56.3 kg - Labs 03/17/17 23:08 03/21/17 03:51 Diabetes panel 03/21/17 Range/Units 03:51 Sodium 132 L (136-145) mEq/L Potassium 3.1 L (3.5-4.5) mEq/L Chloride 105 (98-109) mEq/L Carbon Dioxide 21 (19-29) mEq/L BUN 13 D (7-20) mg/dL Creatinine 0.68 D (0.57-1.11) mg/dL Glucose 123 H (70-99) mg/dL Calcium 7.7 L (8.6-10.8) mg/dL Calcium panel 03/21/17 Range/Units 03:51 Calcium 7.7 L (8.6-10.8) mg/dL Pituitary panel 03/21/17 Range/Units 03:51 Sodium 132 L (136-145) mEq/L Potassium 3.1 L (3.5-4.5) mEq/L Chloride 105 (98-109) mEq/L Carbon Dioxide 21 (19-29) mEq/L BUN 13 D (7-20) mg/dL Creatinine 0.68 D (0.57-1.11) mg/dL Glucose 123 H (70-99) mg/dL Calcium 7.7 L (8.6-10.8) mg/dL Adrenal panel 03/21/17 Range/Units 03:51 Sodium 132 L (136-145) mEq/L Potassium 3.1 L (3.5-4.5) mEq/L Chloride 105 (98-109) mEq/L Carbon Dioxide 21 (19-29) mEq/L BUN 13 D (7-20) mg/dL Creatinine 0.68 D (0.57-1.11) mg/dL Glucose 123 H (70-99) mg/dL Calcium 7.7 L (8.6-10.8) mg/dL - Attending Attestation I examined this patient and my medical decision-making was reviewed with the Resident Physician. I agree with the documented findings, disposition and treatment plan as described except to the extent set forth below. The patient is seen and evaluated on morning rounds. Documentation by the resident accurately reflects the patient's current clinical standing. She is progressing well after small bowel resection and femoral hernia repair. Tacos Starks MD FACS
[2017-03-20] MEDS: Ipratropium/Albuterol Neb 3 ML IH SCH ×2 (16:22→23:06)
[2017-03-21] MEDS: *HR* Morphine 2 MG/ML SYRINGE IVP PRN (02:03)
[2017-03-21] MEDS: Piperacillin/Tazobactam 3.375 GM in D5% in Water (Mini-Bag+) 100 ML IVPB SCH ×2 (03:26→16:18)
[2017-03-21] MEDS: Ipratropium/Albuterol Neb 3 ML IH SCH ×4 (03:53→22:48)
[2017-03-21] MEDS: *HR* OxyCODONE/APAP 5/325 TABLET PO PRN ×2 (03:56→16:13)
[2017-03-21 04:26] LABS: BUN/Creatinine Ratio 19 (6-26); Calcium 7.7 mg/dL (8.6-10.8); Carbon Dioxide 21 mEq/L (19-29); Chloride 105 mEq/L (98-109); Glucose 123 mg/dL (70-99); Osmolality,Calculated 275 (280-300); Potassium 3.1 mEq/L (3.5-4.5); Sodium 132 mEq/L (136-145); eGFR For African Americans > 60 (> 60); eGFR For Non-African Americans > 60 (> 60)
[2017-03-21 04:28] LABS: Blood Urea Nitrogen 13 mg/dL (7-20)
[2017-03-21] MEDS: Pantoprazole 40 MG VIAL IVP SCH ×2 (06:02→20:02)
[2017-03-21] MEDS: *HR* Heparin 5,000 UNIT/ML VIAL SQ SCH ×2 (06:04→20:02)
[2017-03-21] MEDS: 0.9 % Sodium Chloride 1,000 ML IVC SCH ×3 (07:46→22:39)
[2017-03-21] MEDS: amLODIPine 5 MG TABLET PO SCH (08:01)
--- NOTE | 2017-03-21 11:33 | General Surgery Progress Note ---
<Karri Chand - Last Filed: 03/21/17 11:38> Date of Encounter: 03/21/17 Time of Encounter: 08:15 - Assessment and Plan (1) Inguinal hernia unilateral, non-recurrent Current Visit: Yes Status: Acute Patient is postop day 3. #1 exploratory laparotomy #2 small bowel resection #3 repair of right femoral hernia on 03/18/[address] Starks. Incision sites are clean, dry, and intact. No drainage. Patient is currently on a clear liquid diet and is tolerating it well. Patient was seen this morning and was advised to take her pain medications that she can take deep breaths in for spirometry. Plan: -Advanced to clear liquid diets without restrictions -Protein supplements TID -Incentive spirometer every 1 hr while awake -Out of bed to chair 3 times a day with assistance -Supportive care/discomfort management -GI prophylaxis -DVT prophylaxis: heparin subcutaneous 5000 every 12 hours. -Continue IV Zosyn 3.375. -Morphine 2 mg every 4 hours for pain control. Qualifiers: Obstruction and gangrene presence: with obstruction but without gangrene Recurrence: non-recurrent Qualified Code(s): K40.30 - Unilateral inguinal hernia, with obstruction, without gangrene, not specified as recurrent (2) Decreased activity tolerance Current Visit: Yes Status: Acute PT/OT has been consulted for activity, safety, and discharge planning. -Out of bed to chair 3 times per day with assistance. (3) Small bowel obstruction Current Visit: Yes Status: Acute (4) DVT prophylaxis Current Visit: Yes Status: Acute Patient is on heparin 5000 subcutaneous 12. Subjective Patient reports: no new complaints, feels better Narrative: Patient was seen and examined at bedside this morning. Patient states that she has not been producing flatus. She does state she has been belching however. She notes that she feels pain on deep inspiration. She has not been taking pain medications, she has been wary of using them. Patient was not sure that she can use pain medication without trouble, and was encouraged to use incentive spirometry. She currently denies having any abdominal pain. She notes that her surgical incision site is nontender. She currently denies having any fever, chills, nausea, vomiting, or chest pain. Objective Vital Signs - Last 8 Hours Temp Pulse Resp BP Pulse Ox 03/21/17 10:02 16 93 03/21/17 05:35 98.3 F 79 16 109/65 93 03/21/17 03:53 18 90 Intake and Output 03/20/17 03/21/17 03/21/17 23:59 07:59 15:59 Intake Total 785 / 785 100 / 100 1240 / 1240 Output Total 200 / 200 0 / 0 600 / 600 Balance 585 / 585 100 / 100 640 / 640 Intake: IV Fluids 785 / 785 100 / 100 1000 / 1000 0.9 % Sodium Chloride 1,000 ML 685 / 685 1000 / 1000 @ 75 mls/hr IVC .[id number] [facility] Rx #:[id number] Zosyn 3.375 GM In Dextrose 5% ( 100 / 100 100 / 100 Minibag+) 100 ML 100 ML @ 25 mls/hr IVPB Q12H [facility] Rx#: [id number] Oral 0 / 0 0 / 0 240 / 240 Output: Urine 200 / 200 0 / 0 600 / 600 Other: Meal Clear # Bowel Movements 0 Weight 56.3 kg Patient Weight 03/21/17 23:59 Weight 56.3 kg - General physical appearance well developed, well nourished, no distress, severe distress - Respiratory normal expansion, normal respiratory effort, clear to percussion, clear to auscultation - Cardiovascular Cardiovascular exam: Present: RRR, no murmurs/rubs/gallops - Abdomen Additional Comments: Incision site present in the lower abdomen in the midline extending down into the right lower quadrant. No redness, drainage, or signs of infection. - Incision Incision: Present: clean and dry, intact. Absent: draining, red, swollen, inflamed, erythema, purulent - Neurologic normal coordination, normal sensation - Psychiatric oriented to time, oriented to person, oriented to place, speech is normal - Labs 03/17/17 23:08 03/21/17 03:51 Diabetes panel 03/21/17 Range/Units 03:51 Sodium 132 L (136-145) mEq/L Potassium 3.1 L (3.5-4.5) mEq/L Chloride 105 (98-109) mEq/L Carbon Dioxide 21 (19-29) mEq/L BUN 13 D (7-20) mg/dL Creatinine 0.68 D (0.57-1.11) mg/dL Glucose 123 H (70-99) mg/dL Calcium 7.7 L (8.6-10.8) mg/dL Calcium panel 03/21/17 Range/Units 03:51 Calcium 7.7 L (8.6-10.8) mg/dL Pituitary panel 03/21/17 Range/Units 03:51 Sodium 132 L (136-145) mEq/L Potassium 3.1 L (3.5-4.5) mEq/L Chloride 105 (98-109) mEq/L Carbon Dioxide 21 (19-29) mEq/L BUN 13 D (7-20) mg/dL Creatinine 0.68 D (0.57-1.11) mg/dL Glucose 123 H (70-99) mg/dL Calcium 7.7 L (8.6-10.8) mg/dL Adrenal panel 03/21/17 Range/Units 03:51 Sodium 132 L (136-145) mEq/L Potassium 3.1 L (3.5-4.5) mEq/L Chloride 105 (98-109) mEq/L Carbon Dioxide 21 (19-29) mEq/L BUN 13 D (7-20) mg/dL Creatinine 0.68 D (0.57-1.11) mg/dL Glucose 123 H (70-99) mg/dL Calcium 7.7 L (8.6-10.8) mg/dL - VTE Documentation of Mechanical Device: Intermittent pneumatic compression device Consult Discharge Plan - Plan Referrals: Priyanka Roach, CONTINUOUS STILL OPERATOR [Primary Care Provider] - <Tacos Starks - Last Filed: 03/22/17 10:01> Date of Encounter: 03/21/17 - Assessment and Plan (1) Hypokalemia Current Visit: Yes Status: Acute Patient will require potassium supplementation. This will be provided at 40 mEq by mouth daily Objective Vital Signs - Last 8 Hours Temp Pulse Resp BP Pulse Ox 03/22/17 06:26 98.3 F 88 18 105/58 90 03/22/17 04:51 19 87 03/22/17 03:58 97.9 F 87 19 147/67 92 Intake and Output 03/21/17 03/22/17 03/22/17 23:59 07:59 15:59 Intake Total 1120 / 1120 Output Total 300 / 300 800 / 800 Balance 820 / 820 -800 / -800 Intake: IV Fluids 1000 / 1000 0.9 % Sodium Chloride 1,000 ML 900 / 900 @ 75 mls/hr IVC .[id number] [facility] Rx #:[id number] Zosyn 3.375 GM In Dextrose 5% ( 100 / 100 Minibag+) 100 ML 100 ML @ 25 mls/hr IVPB Q12H [facility] Rx#: [id number] Oral 120 / 120 Output: Urine 300 / 300 800 / 800 Other: Meal Clear Percent of Meal Consumed 0% # Bowel Movements 0 Weight 57.4 kg Patient Weight 03/22/17 23:59 Weight 57.4 kg - Labs 03/22/17 07:38 03/22/17 07:38 Diabetes panel 03/21/17 03/22/17 Range/Units 13:08 07:38 Sodium 132 L 134 L (136-145) mEq/L Potassium 3.3 L 3.0 L (3.5-4.5) mEq/L Chloride 106 107 (98-109) mEq/L Carbon Dioxide 16 L 20 (19-29) mEq/L BUN 11 8 (7-20) mg/dL Creatinine 0.77 0.71 (0.57-1.11) mg/dL Glucose 193 H 144 H (70-99) mg/dL Calcium 8.2 L 7.8 L (8.6-10.8) mg/dL Calcium panel 03/21/17 03/22/17 Range/Units 13:08 07:38 Calcium 8.2 L 7.8 L (8.6-10.8) mg/dL Pituitary panel 03/21/17 03/22/17 Range/Units 13:08 07:38 Sodium 132 L 134 L (136-145) mEq/L Potassium 3.3 L 3.0 L (3.5-4.5) mEq/L Chloride 106 107 (98-109) mEq/L Carbon Dioxide 16 L 20 (19-29) mEq/L BUN 11 8 (7-20) mg/dL Creatinine 0.77 0.71 (0.57-1.11) mg/dL Glucose 193 H 144 H (70-99) mg/dL Calcium 8.2 L 7.8 L (8.6-10.8) mg/dL Adrenal panel 03/21/17 03/22/17 Range/Units 13:08 07:38 Sodium 132 L 134 L (136-145) mEq/L Potassium 3.3 L 3.0 L (3.5-4.5) mEq/L Chloride 106 107 (98-109) mEq/L Carbon Dioxide 16 L 20 (19-29) mEq/L BUN 11 8 (7-20) mg/dL Creatinine 0.77 0.71 (0.57-1.11) mg/dL Glucose 193 H 144 H (70-99) mg/dL Calcium 8.2 L 7.8 L (8.6-10.8) mg/dL - Attending Attestation I examined this patient and my medical decision-making was reviewed with the Resident Physician. I agree with the documented findings, disposition and treatment plan as described except to the extent set forth below. The patient is seen and evaluated on morning rounds with resting. Her abdomen is somewhat distended. She is not passing flatus yet. She does have normal bowel sounds. We will continue supportive care and clear liquids. She is noted to be hypokalemic and will received potassium supplementation. Tacos Starks MD FACS
[2017-03-21 13:36] LABS: Basophils % 0.2 %; Eosinophils % 0.1 %; Hematocrit 28.1 % (35.3-44.9); Immature Granulocytes % 1.3 % (0-4); Lymphocytes # 0.8 K/mcL (0.6-4.6); Mean Corpuscular HGB Conc 34.2 g/dL (31.6-35.5); Mean Corpuscular Hemoglobin 31.8 pg (28.0-33.3); Mean Platelet Volume 10.7 fL (9.4-12.4); Monocytes # 0.9 K/mcL (0.0-1.3); Monocytes % 6.8 %; Neutrophils # 10.9 K/mcL (1.6-8.9); Platelet Count 275 K/mcL (140-400); Red Blood Count 3.02 M/mcL (3.82-4.97); Red Cell Distribution Width 12.9 % (11.5-14.5); Segmented Neutrophils % 85.6 %
[2017-03-21 13:37] LABS: Hemoglobin 9.6 g/dL (11.5-15.4)
[2017-03-21 13:53] LABS: BUN/Creatinine Ratio 14 (6-26); Blood Urea Nitrogen 11 mg/dL (7-20); Calcium 8.2 mg/dL (8.6-10.8); Carbon Dioxide 16 mEq/L (19-29); Chloride 106 mEq/L (98-109); Glucose 193 mg/dL (70-99); Osmolality,Calculated 279 (280-300); Potassium 3.3 mEq/L (3.5-4.5); Sodium 132 mEq/L (136-145); eGFR For African Americans > 60 (> 60); eGFR For Non-African Americans > 60 (> 60)
[2017-03-22] MEDS: *HR* OxyCODONE/APAP 5/325 TABLET PO PRN ×2 (02:12→09:31)
[2017-03-22] MEDS: Piperacillin/Tazobactam 3.375 GM in D5% in Water (Mini-Bag+) 100 ML IVPB SCH ×2 (04:15→18:53)
[2017-03-22] MEDS: Ipratropium/Albuterol Neb 3 ML IH SCH ×4 (04:51→22:42)
[2017-03-22] MEDS: *HR* Heparin 5,000 UNIT/ML VIAL SQ SCH ×2 (06:08→18:53)
[2017-03-22] MEDS: Pantoprazole 40 MG VIAL IVP SCH ×2 (06:08→18:53)
[2017-03-22 08:10] LABS: Basophils % 0.2 %; Eosinophils # 0.1 K/mcL (0.0-0.6); Eosinophils % 1.4 %; Hematocrit 23.6 % (35.3-44.9); Hemoglobin 8.3 g/dL (11.5-15.4); Immature Granulocytes % 1.8 % (0-4); Immature Platelets 5.3 % (1.1-6.1); Lymphocytes # 1.1 K/mcL (0.6-4.6); Lymphocytes % 11.9 %; Mean Corpuscular HGB Conc 35.2 g/dL (31.6-35.5); Mean Corpuscular Volume 91.1 fL (83.0-100.0); Mean Platelet Volume 10.6 fL (9.4-12.4); Monocytes # 0.8 K/mcL (0.0-1.3); Monocytes % 8.9 %; Neutrophils # 7.1 K/mcL (1.6-8.9); Platelet Count 247 K/mcL (140-400); Red Blood Count 2.59 M/mcL (3.82-4.97); Red Cell Distribution Width 12.7 % (11.5-14.5); Segmented Neutrophils % 75.8 %
[2017-03-22 08:43] LABS: BUN/Creatinine Ratio 11 (6-26); Blood Urea Nitrogen 8 mg/dL (7-20); Calcium 7.8 mg/dL (8.6-10.8); Carbon Dioxide 20 mEq/L (19-29); Chloride 107 mEq/L (98-109); Glucose 144 mg/dL (70-99); Osmolality,Calculated 279 (280-300); Sodium 134 mEq/L (136-145); eGFR For African Americans > 60 (> 60); eGFR For Non-African Americans > 60 (> 60)
[2017-03-22] MEDS: amLODIPine 5 MG TABLET PO SCH (09:32)
--- NOTE | 2017-03-22 10:14 | General Surgery Progress Note ---
<Karri Chand - Last Filed: 03/22/17 10:40> Date of Encounter: 03/22/17 Time of Encounter: 09:10 - Assessment and Plan (1) Inguinal hernia unilateral, non-recurrent Current Visit: Yes Status: Acute Patient is postop day 4. #1 exploratory laparotomy #2 small bowel resection #3 repair of right femoral hernia on 03/18/[address] Starks. Incision sites are clean, dry, and intact. No drainage. Pathology report showed ischemic bowel, benign small intestine and benign mesenteric fat. Patient is currently on a clear liquid diet and is tolerating it well. Patient was seen this morning and was advised to take her pain medications that she can take deep breaths in for spirometry. Plan: -Fleets enema x 1. -Advanced to clear liquid diets without restrictions -Protein supplements TID -Incentive spirometer every 1 hr while awake -Out of bed to chair 3 times a day with assistance -Supportive care/discomfort management -GI prophylaxis -DVT prophylaxis: heparin SQ 5000 Q12hr. -Continue IV Zosyn 3.375. -Morphine 2 mg every 4 hours for pain control. Qualifiers: Obstruction and gangrene presence: with obstruction but without gangrene Recurrence: non-recurrent Qualified Code(s): K40.30 - Unilateral inguinal hernia, with obstruction, without gangrene, not specified as recurrent (2) Decreased activity tolerance Current Visit: Yes Status: Acute PT/OT has been consulted for activity, safety, and discharge planning. -Out of bed to chair 3 times per day with assistance. (3) Small bowel obstruction Current Visit: Yes Status: Acute (4) DVT prophylaxis Current Visit: Yes Status: Acute Patient is on heparin 5000 SQ q12. Subjective Patient reports: no new complaints, pain is less Narrative: Patient was seen and examined at bedside this morning. She reports that her abdominal pain has improved. No nausea or vomiting. No pain or drainage near her incision site. Denies having nausea, vomiting, fever, chills, or chest pain. Did pass some flatus this morning. She reports that the pain she experienced on deep inspiration over her hospital stay has since resolved. Objective Vital Signs - Last 8 Hours Temp Pulse Resp BP Pulse Ox 03/22/17 06:26 98.3 F 88 18 105/58 90 03/22/17 04:51 19 87 03/22/17 03:58 97.9 F 87 19 147/67 92 Intake and Output 03/21/17 03/22/17 03/22/17 23:59 07:59 15:59 Intake Total 1120 / 1120 Output Total 300 / 300 800 / 800 Balance 820 / 820 -800 / -800 Intake: IV Fluids 1000 / 1000 0.9 % Sodium Chloride 1,000 ML 900 / 900 @ 75 mls/hr IVC .[id number] [facility] Rx #:[id number] Zosyn 3.375 GM In Dextrose 5% ( 100 / 100 Minibag+) 100 ML 100 ML @ 25 mls/hr IVPB Q12H [facility] Rx#: [id number] Oral 120 / 120 Output: Urine 300 / 300 800 / 800 Other: Meal Clear Percent of Meal Consumed 0% # Bowel Movements 0 Weight 57.4 kg Patient Weight 03/22/17 23:59 Weight 57.4 kg - General physical appearance well developed, well nourished, no distress - Neck Neck exam: trachea midline, no lymphadectomy, no venous distension - Respiratory normal expansion, normal respiratory effort, clear to auscultation - Cardiovascular Cardiovascular exam: Present: RRR, no murmurs/rubs/gallops. Absent: bradycardia , tachycardia, irregular rhythm, murmurs, clicks, rubs - Abdomen Abdomen: Present: bowel sounds present, soft, tender Abdominal Tenderness: RLQ, LLQ, suprapubic - Psychiatric oriented to time, oriented to person, oriented to place, speech is normal - Labs 03/22/17 07:38 03/22/17 07:38 Diabetes panel 03/21/17 03/22/17 Range/Units 13:08 07:38 Sodium 132 L 134 L (136-145) mEq/L Potassium 3.3 L 3.0 L (3.5-4.5) mEq/L Chloride 106 107 (98-109) mEq/L Carbon Dioxide 16 L 20 (19-29) mEq/L BUN 11 8 (7-20) mg/dL Creatinine 0.77 0.71 (0.57-1.11) mg/dL Glucose 193 H 144 H (70-99) mg/dL Calcium 8.2 L 7.8 L (8.6-10.8) mg/dL Calcium panel 03/21/17 03/22/17 Range/Units 13:08 07:38 Calcium 8.2 L 7.8 L (8.6-10.8) mg/dL Pituitary panel 03/21/17 03/22/17 Range/Units 13:08 07:38 Sodium 132 L 134 L (136-145) mEq/L Potassium 3.3 L 3.0 L (3.5-4.5) mEq/L Chloride 106 107 (98-109) mEq/L Carbon Dioxide 16 L 20 (19-29) mEq/L BUN 11 8 (7-20) mg/dL Creatinine 0.77 0.71 (0.57-1.11) mg/dL Glucose 193 H 144 H (70-99) mg/dL Calcium 8.2 L 7.8 L (8.6-10.8) mg/dL Adrenal panel 03/21/17 03/22/17 Range/Units 13:08 07:38 Sodium 132 L 134 L (136-145) mEq/L Potassium 3.3 L 3.0 L (3.5-4.5) mEq/L Chloride 106 107 (98-109) mEq/L Carbon Dioxide 16 L 20 (19-29) mEq/L BUN 11 8 (7-20) mg/dL Creatinine 0.77 0.71 (0.57-1.11) mg/dL Glucose 193 H 144 H (70-99) mg/dL Calcium 8.2 L 7.8 L (8.6-10.8) mg/dL - VTE Documentation of Mechanical Device: Intermittent pneumatic compression device Consult Discharge Plan - Plan Referrals: Priyanka Roach, ROLL BUCKER [Primary Care Provider] - <Tacos Starks - Last Filed: 03/22/17 14:17> Date of Encounter: 03/22/17 - Assessment and Plan (1) Hypokalemia Current Visit: Yes Status: Acute Objective Vital Signs - Last 8 Hours Temp Pulse Resp BP Pulse Ox 03/22/17 10:50 18 93 03/22/17 10:35 97.6 F 85 18 131/64 91 03/22/17 06:26 98.3 F 88 18 105/58 90 Intake and Output 03/21/17 03/22/17 03/22/17 23:59 07:59 15:59 Intake Total 1120 / 1120 Output Total 300 / 300 800 / 800 0 / 0 Balance 820 / 820 -800 / -800 0 / 0 Intake: IV Fluids 1000 / 1000 0.9 % Sodium Chloride 1,000 ML 900 / 900 @ 75 mls/hr IVC .[id number] [facility] Rx #:[id number] Zosyn 3.375 GM In Dextrose 5% ( 100 / 100 Minibag+) 100 ML 100 ML @ 25 mls/hr IVPB Q12H [facility] Rx#: [id number] Oral 120 / 120 Output: Urine 300 / 300 800 / 800 0 / 0 Other: Meal Clear Percent of Meal Consumed 0% # Bowel Movements 0 0 Weight 57.4 kg Patient Weight 03/22/17 23:59 Weight 57.4 kg - Labs 03/22/17 07:38 03/22/17 07:38 Diabetes panel 03/22/17 Range/Units 07:38 Sodium 134 L (136-145) mEq/L Potassium 3.0 L (3.5-4.5) mEq/L Chloride 107 (98-109) mEq/L Carbon Dioxide 20 (19-29) mEq/L BUN 8 (7-20) mg/dL Creatinine 0.71 (0.57-1.11) mg/dL Glucose 144 H (70-99) mg/dL Calcium 7.8 L (8.6-10.8) mg/dL Calcium panel 03/22/17 Range/Units 07:38 Calcium 7.8 L (8.6-10.8) mg/dL Pituitary panel 03/22/17 Range/Units 07:38 Sodium 134 L (136-145) mEq/L Potassium 3.0 L (3.5-4.5) mEq/L Chloride 107 (98-109) mEq/L Carbon Dioxide 20 (19-29) mEq/L BUN 8 (7-20) mg/dL Creatinine 0.71 (0.57-1.11) mg/dL Glucose 144 H (70-99) mg/dL Calcium 7.8 L (8.6-10.8) mg/dL Adrenal panel 03/22/17 Range/Units 07:38 Sodium 134 L (136-145) mEq/L Potassium 3.0 L (3.5-4.5) mEq/L Chloride 107 (98-109) mEq/L Carbon Dioxide 20 (19-29) mEq/L BUN 8 (7-20) mg/dL Creatinine 0.71 (0.57-1.11) mg/dL Glucose 144 H (70-99) mg/dL Calcium 7.8 L (8.6-10.8) mg/dL - Attending Attestation I examined this patient and my medical decision-making was reviewed with the Resident Physician. I agree with the documented findings, disposition and treatment plan as described except to the extent set forth below. The patient is seen and evaluated on morning rounds. She is making slow progress. She still has not had bowel movement. She has good bowel sounds. We will plan on a fleets enema. We will continue supportive care. Tacos Starks MD FACS
[2017-03-22 16:29] LABS: Hematocrit 25.6 % (35.3-44.9); Hemoglobin 9.2 g/dL (11.5-15.4); Mean Corpuscular HGB Conc 35.9 g/dL (31.6-35.5); Mean Corpuscular Hemoglobin 32.7 pg (28.0-33.3); Mean Corpuscular Volume 91.1 fL (83.0-100.0); Mean Platelet Volume 10.3 fL (9.4-12.4); Platelet Count 275 K/mcL (140-400); Red Blood Count 2.81 M/mcL (3.82-4.97); Red Cell Distribution Width 12.8 % (11.5-14.5)
[2017-03-22 16:43] LABS: BUN/Creatinine Ratio 11 (6-26); Blood Urea Nitrogen 7 mg/dL (7-20); Calcium 7.8 mg/dL (8.6-10.8); Carbon Dioxide 18 mEq/L (19-29); Chloride 107 mEq/L (98-109); Glucose 123 mg/dL (70-99); Osmolality,Calculated 275 (280-300); Sodium 133 mEq/L (136-145); eGFR For African Americans > 60 (> 60); eGFR For Non-African Americans > 60 (> 60)
[2017-03-22] MEDS: 0.9 % Sodium Chloride 1,000 ML IVC SCH (18:54)
[2017-03-22] MEDS: *HR* Morphine 2 MG/ML SYRINGE IVP PRN (19:03)
[2017-03-23] MEDS: 0.9 % Sodium Chloride 1,000 ML IVC SCH ×2 (02:58→16:36)
[2017-03-23] MEDS: Piperacillin/Tazobactam 3.375 GM in D5% in Water (Mini-Bag+) 100 ML IVPB SCH ×2 (02:58→17:50)
[2017-03-23] MEDS: *HR* OxyCODONE/APAP 5/325 TABLET PO PRN ×2 (03:01→12:46)
[2017-03-23] MEDS: Ipratropium/Albuterol Neb 3 ML IH SCH ×4 (03:42→22:01)
[2017-03-23] MEDS: Pantoprazole 40 MG VIAL IVP SCH ×2 (05:26→17:50)
[2017-03-23] MEDS: *HR* Heparin 5,000 UNIT/ML VIAL SQ SCH ×2 (05:27→17:50)
--- NOTE | 2017-03-23 09:02 | General Surgery Progress Note ---
<Karri Chand - Last Filed: 03/23/17 09:11> Date of Encounter: 03/23/17 Time of Encounter: 08:30 - Assessment and Plan (1) Inguinal hernia unilateral, non-recurrent Current Visit: Yes Status: Acute Patient is postop day 5. #1 exploratory laparotomy #2 small bowel resection #3 repair of right femoral hernia on 03/18/[address] Starks. Incision sites are clean, dry, and intact. No drainage. Pathology report showed ischemic bowel, benign small intestine and benign mesenteric fat. Patient is currently on a clear liquid diet and is tolerating it well. Pain has resolved; no pain on deep inspiration. Is passing gas. No distension. -Patient's diet has been advanced. -Protein supplements TID -Incentive spirometer every 1 hr while awake -Out of bed to chair 3 times a day with assistance -Supportive care/discomfort management -GI prophylaxis -DVT prophylaxis: heparin SQ 5000 Q12hr. -Continue IV Zosyn 3.375. -Morphine 2 mg every 4 hours for pain control. Qualifiers: Obstruction and gangrene presence: with obstruction but without gangrene Recurrence: non-recurrent Qualified Code(s): K40.30 - Unilateral inguinal hernia, with obstruction, without gangrene, not specified as recurrent (2) Decreased activity tolerance Current Visit: Yes Status: Acute PT/OT has been consulted for activity, safety, and discharge planning. -Out of bed to chair 3 times per day with assistance. (3) Small bowel obstruction Current Visit: Yes Status: Acute (4) DVT prophylaxis Current Visit: Yes Status: Acute Patient is on heparin 5000 SQ q12. Subjective Patient reports: no new complaints, still having pain, pain is less Narrative: Patient was seen and examined at bedside this morning. She reports that she is feeling better compared to yesterday. She has been passing flatus this morning. She notes that her pain on deep inspiration has also improved. Denies fever, chills, nausea, vomiting, and abdominal pain. Her incision site is nontender; no drainage or blood is present. Objective Vital Signs - Last 8 Hours Temp Pulse Resp BP Pulse Ox 03/23/17 06:50 97.9 F 85 18 119/77 95 03/23/17 03:39 98.1 F 99 19 125/61 91 Intake and Output 03/22/17 03/23/17 03/23/17 23:59 07:59 15:59 Intake Total 0 / 0 1050 / 1050 Output Total 700 / 700 700 / 700 Balance -700 / -700 350 / 350 Intake: IV Fluids 1050 / 1050 0.9 % Sodium Chloride 1,000 ML 950 / 950 @ 75 mls/hr IVC .[id number] [facility] Rx #:[id number] Zosyn 3.375 GM In Dextrose 5% ( 100 / 100 Minibag+) 100 ML 100 ML @ 25 mls/hr IVPB Q12H [facility] Rx#: [id number] Oral 0 / 0 0 / 0 Output: Urine 700 / 700 700 / 700 Other: Weight 58 kg Patient Weight 03/23/17 23:59 Weight 58 kg - General physical appearance well developed, well nourished, no distress - Neck Neck exam: trachea midline, no lymphadectomy - Respiratory normal expansion, normal respiratory effort, clear to auscultation - Cardiovascular Cardiovascular exam: Present: RRR, no murmurs/rubs/gallops - Abdomen Abdomen: Present: bowel sounds present, soft, non tender - Labs 03/22/17 16:24 03/22/17 16:24 Diabetes panel 03/22/17 Range/Units 16:24 Sodium 133 L (136-145) mEq/L Potassium 3.0 L (3.5-4.5) mEq/L Chloride 107 (98-109) mEq/L Carbon Dioxide 18 L (19-29) mEq/L BUN 7 (7-20) mg/dL Creatinine 0.66 (0.57-1.11) mg/dL Glucose 123 H (70-99) mg/dL Calcium 7.8 L (8.6-10.8) mg/dL Calcium panel 03/22/17 Range/Units 16:24 Calcium 7.8 L (8.6-10.8) mg/dL Pituitary panel 03/22/17 Range/Units 16:24 Sodium 133 L (136-145) mEq/L Potassium 3.0 L (3.5-4.5) mEq/L Chloride 107 (98-109) mEq/L Carbon Dioxide 18 L (19-29) mEq/L BUN 7 (7-20) mg/dL Creatinine 0.66 (0.57-1.11) mg/dL Glucose 123 H (70-99) mg/dL Calcium 7.8 L (8.6-10.8) mg/dL Adrenal panel 03/22/17 Range/Units 16:24 Sodium 133 L (136-145) mEq/L Potassium 3.0 L (3.5-4.5) mEq/L Chloride 107 (98-109) mEq/L Carbon Dioxide 18 L (19-29) mEq/L BUN 7 (7-20) mg/dL Creatinine 0.66 (0.57-1.11) mg/dL Glucose 123 H (70-99) mg/dL Calcium 7.8 L (8.6-10.8) mg/dL - VTE Documentation of Mechanical Device: Intermittent pneumatic compression device Consult Discharge Plan - Plan Referrals: Piryanka Roach, BUSINESS LIAISON OFFICER [Primary Care Provider] - <Tacos Starks - Last Filed: 03/24/17 08:12> Date of Encounter: 03/23/17 - Assessment and Plan (1) Hypokalemia Current Visit: Yes Status: Acute Objective Vital Signs - Last 8 Hours Temp Pulse Resp BP Pulse Ox 03/24/17 03:58 16 94 03/24/17 03:14 98.2 F 83 16 142/61 92 Intake and Output 03/23/17 03/24/17 03/24/17 23:59 07:59 15:59 Intake Total 1160 / 1160 0 / 0 Output Total 250 / 250 450 / 450 Balance 910 / 910 -450 / -450 Intake: IV Fluids 1100 / 1100 0.9 % Sodium Chloride 1,000 ML 1000 / 1000 @ 75 mls/hr IVC .[id number] [facility] Rx #:[id number] Zosyn 3.375 GM In Dextrose 5% ( 100 / 100 Minibag+) 100 ML 100 ML @ 25 mls/hr IVPB Q12H [facility] Rx#: [id number] Oral 60 / 60 0 / 0 Output: Urine 250 / 250 450 / 450 Other: # Voids 1 - Labs 03/24/17 03:08 03/24/17 03:08 Diabetes panel 03/23/17 03/24/17 Range/Units 14:01 03:08 Sodium 135 L 136 (136-145) mEq/L Potassium 3.0 L 3.1 L (3.5-4.5) mEq/L Chloride 109 105 (98-109) mEq/L Carbon Dioxide 19 24 (19-29) mEq/L BUN 5 L 5 L (7-20) mg/dL Creatinine 0.61 0.62 (0.57-1.11) mg/dL Glucose 154 H 108 H (70-99) mg/dL Calcium 8.0 L 8.1 L (8.6-10.8) mg/dL Calcium panel 03/23/17 03/24/17 Range/Units 14:01 03:08 Calcium 8.0 L 8.1 L (8.6-10.8) mg/dL Pituitary panel 03/23/17 03/24/17 Range/Units 14:01 03:08 Sodium 135 L 136 (136-145) mEq/L Potassium 3.0 L 3.1 L (3.5-4.5) mEq/L Chloride 109 105 (98-109) mEq/L Carbon Dioxide 19 24 (19-29) mEq/L BUN 5 L 5 L (7-20) mg/dL Creatinine 0.61 0.62 (0.57-1.11) mg/dL Glucose 154 H 108 H (70-99) mg/dL Calcium 8.0 L 8.1 L (8.6-10.8) mg/dL Adrenal panel 03/23/17 03/24/17 Range/Units 14:01 03:08 Sodium 135 L 136 (136-145) mEq/L Potassium 3.0 L 3.1 L (3.5-4.5) mEq/L Chloride 109 105 (98-109) mEq/L Carbon Dioxide 19 24 (19-29) mEq/L BUN 5 L 5 L (7-20) mg/dL Creatinine 0.61 0.62 (0.57-1.11) mg/dL Glucose 154 H 108 H (70-99) mg/dL Calcium 8.0 L 8.1 L (8.6-10.8) mg/dL - Attending Attestation I examined this patient and my medical decision-making was reviewed with the Resident Physician. I agree with the documented findings, disposition and treatment plan as described except to the extent set forth below. The patient is seen and evaluated with the resident on morning rounds. She is ambulating well she has good bowel sounds. She is slow to advance her diet. We will continue supportive care. Tacos Starks MD FACS
[2017-03-23] MEDS: amLODIPine 5 MG TABLET PO SCH (10:10)
[2017-03-23 14:23] LABS: Basophils # 0.1 K/mcL (0.0-0.2); Basophils % 0.6 %; Eosinophils # 0.3 K/mcL (0.0-0.6); Eosinophils % 2.9 %; Hematocrit 26.4 % (35.3-44.9); Hemoglobin 9.4 g/dL (11.5-15.4); Immature Granulocytes % 2.1 % (0-4); Lymphocytes % 10.8 %; Mean Corpuscular HGB Conc 35.6 g/dL (31.6-35.5); Mean Corpuscular Hemoglobin 31.6 pg (28.0-33.3); Mean Corpuscular Volume 88.9 fL (83.0-100.0); Mean Platelet Volume 11.3 fL (9.4-12.4); Monocytes # 0.8 K/mcL (0.0-1.3); Monocytes % 8.2 %; Platelet Count 234 K/mcL (140-400); Red Blood Count 2.97 M/mcL (3.82-4.97); Segmented Neutrophils % 75.4 %
[2017-03-23 14:33] LABS: BUN/Creatinine Ratio 8 (6-26); Carbon Dioxide 19 mEq/L (19-29); Chloride 109 mEq/L (98-109); Glucose 154 mg/dL (70-99); Osmolality,Calculated 280 (280-300); Sodium 135 mEq/L (136-145); eGFR For African Americans > 60 (> 60); eGFR For Non-African Americans > 60 (> 60)
[2017-03-23 14:35] LABS: Blood Urea Nitrogen 5 mg/dL (7-20)
[2017-03-23 14:39] LABS: Neutrophils # 7.2 K/mcL (1.6-8.9)
[2017-03-23] MEDS ORDERED: Potassium Chloride 40 MEQ, Lidocaine 1% 2 ML in D5% in Water 500 ML IVPB ONE (14:42)
--- NOTE | 2017-03-23 16:32 | Electrocardiograph Report ---
[place] [address] Test Date: 2017-03-18 Pat Name: Tanya Sharp Department: 115 Room: 3A11 Gender: Party Plan Sales Director: CAROLA : 1925 Requested By: Tacos Starks Order Number: [id number] Reading MD: Eliz Donovan Measurements Intervals [place] Rate: 66 P: 34 NV: 194 QRS: -30 QRSD: 84 T: 45 QT: 413 QTc: 427 Interpretive Statements SINUS RHYTHM WITH OCCASIONAL VENTRICULAR PREMATURE COMPLEXES BORDERLINE LEFT AXIS DEVIATION LOW QRS VOLTAGE IN PRECORDIAL LEADS Electronically Signed On 03-23-2017 16:30:52 EDT by Eliz Donovan
--- NOTE | 2017-03-23 17:15 | Electrocardiograph Report ---
[place] [id number] Test Date: 2017-03-20 Pat Name: Tanya Sharp Department: 115 Room: 3A11 Gender: Balloon Maker: DWAYNE : 1925 Requested By: Tacos Starks Order Number: [id number] Reading MD: Eliz Donovan Measurements Intervals [place] Rate: 79 P: 34 TX: 173 QRS: -27 QRSD: 85 T: 37 QT: 357 QTc: 391 Interpretive Statements SINUS RHYTHM BORDERLINE LEFT AXIS DEVIATION LOW QRS VOLTAGE IN PRECORDIAL LEADS NONSPECIFIC ST & T-WAVE ABNORMALITY Electronically Signed On 03-23-2017 17:13:21 EDT by Eliz Donovan
[2017-03-24] MEDS: Ipratropium/Albuterol Neb 3 ML IH SCH ×4 (03:57→21:03)
[2017-03-24 04:18] LABS: Basophils # 0.1 K/mcL (0.0-0.2); Basophils % 0.7 %; Eosinophils # 0.4 K/mcL (0.0-0.6); Eosinophils % 4.5 %; Hematocrit 26.9 % (35.3-44.9); Hemoglobin 9.5 g/dL (11.5-15.4); Immature Granulocytes % 2.6 % (0-4); Lymphocytes # 1.2 K/mcL (0.6-4.6); Lymphocytes % 12.4 %; Mean Corpuscular HGB Conc 35.3 g/dL (31.6-35.5); Mean Corpuscular Hemoglobin 31.8 pg (28.0-33.3); Mean Platelet Volume 10.7 fL (9.4-12.4); Monocytes # 0.8 K/mcL (0.0-1.3); Monocytes % 8.8 %; Neutrophils # 6.7 K/mcL (1.6-8.9); Platelet Count 305 K/mcL (140-400); Red Blood Count 2.99 M/mcL (3.82-4.97); Red Cell Distribution Width 13.2 % (11.5-14.5)
[2017-03-24 04:31] LABS: BUN/Creatinine Ratio 8 (6-26); Calcium 8.1 mg/dL (8.6-10.8); Carbon Dioxide 24 mEq/L (19-29); Chloride 105 mEq/L (98-109); Glucose 108 mg/dL (70-99); Osmolality,Calculated 280 (280-300); Potassium 3.1 mEq/L (3.5-4.5); Sodium 136 mEq/L (136-145); eGFR For African Americans > 60 (> 60); eGFR For Non-African Americans > 60 (> 60)
[2017-03-24 04:33] LABS: Blood Urea Nitrogen 5 mg/dL (7-20)
[2017-03-24] MEDS: Piperacillin/Tazobactam 3.375 GM in D5% in Water (Mini-Bag+) 100 ML IVPB SCH ×2 (05:04→18:16)
[2017-03-24] MEDS: Pantoprazole 40 MG VIAL IVP SCH ×2 (05:05→18:16)
[2017-03-24] MEDS: *HR* Heparin 5,000 UNIT/ML VIAL SQ SCH ×2 (07:49→18:16)
--- NOTE | 2017-03-24 08:34 | General Surgery Progress Note ---
<Karri Chand - Last Filed: 03/24/17 14:32> Date of Encounter: 03/24/17 Time of Encounter: 08:15 - Assessment and Plan (1) Inguinal hernia unilateral, non-recurrent Current Visit: Yes Status: Acute Patient is postop day 6. #1 exploratory laparotomy #2 small bowel resection #3 repair of right femoral hernia on 03/18/[address] Starks. Incision sites are clean, dry, and intact. No drainage. Pathology report showed ischemic bowel, benign small intestine and benign mesenteric fat. Patient is currently on a clear liquid diet and is tolerating it well. Pain has resolved; no pain on deep inspiration. Is passing gas. No distension. Patient has not had bowel movement today. -Diet advanced. -Fleet enema. -Protein supplements TID -Incentive spirometer every 1 hr while awake -Out of bed to chair 3 times a day with assistance -Supportive care/discomfort management -GI prophylaxis -DVT prophylaxis: heparin SQ 5000 Q12hr. -Continue IV Zosyn 3.375. -Morphine 2 mg every 4 hours for pain control. -Social work consulted for therapy prior to discharge. -Discharge planning. Qualifiers: Obstruction and gangrene presence: with obstruction but without gangrene Recurrence: non-recurrent Qualified Code(s): K40.30 - Unilateral inguinal hernia, with obstruction, without gangrene, not specified as recurrent (2) Decreased activity tolerance Current Visit: Yes Status: Acute PT/OT has been consulted for activity, safety, and discharge planning. -Out of bed to chair 3 times per day with assistance. (3) Small bowel obstruction Current Visit: Yes Status: Acute (4) DVT prophylaxis Current Visit: Yes Status: Acute Patient is on heparin 5000 SQ q12. (5) Hypokalemia Current Visit: Yes Status: Acute Patient's potassium was low at 3.1. -Potassium supplement ordered. Subjective Patient reports: no new complaints, feels better, no bowel movement Narrative: Patient was seen and examined at bedside this morning. She reports that she has not had any bowel movement this movement. She denies any abdominal pain or any tenderness near her incision site. She denies having pain on inspiration. She denies nausea, vomiting, fever, chills. She has no further complaints at this time. Objective Vital Signs - Last 8 Hours Temp Pulse Resp BP Pulse Ox 03/24/17 03:58 16 94 03/24/17 03:14 98.2 F 83 16 142/61 92 Intake and Output 03/23/17 03/24/17 03/24/17 23:59 07:59 15:59 Intake Total 1160 / 1160 0 / 0 Output Total 250 / 250 450 / 450 Balance 910 / 910 -450 / -450 Intake: IV Fluids 1100 / 1100 0.9 % Sodium Chloride 1,000 ML 1000 / 1000 @ 75 mls/hr IVC .[id number] [facility] Rx #:[id number] Zosyn 3.375 GM In Dextrose 5% ( 100 / 100 Minibag+) 100 ML 100 ML @ 25 mls/hr IVPB Q12H [facility] Rx#: [id number] Oral 60 / 60 0 / 0 Output: Urine 250 / 250 450 / 450 Other: # Voids 1 - General physical appearance well developed, well nourished, no distress - Neck Neck exam: no masses, trachea midline, no lymphadectomy - Respiratory normal expansion, normal respiratory effort, clear to auscultation - Cardiovascular Cardiovascular exam: Present: RRR, no murmurs/rubs/gallops - Abdomen Abdomen: Present: bowel sounds present, soft, non tender - Labs 03/24/17 03:08 03/24/17 03:08 Diabetes panel 03/23/17 03/24/17 Range/Units 14:01 03:08 Sodium 135 L 136 (136-145) mEq/L Potassium 3.0 L 3.1 L (3.5-4.5) mEq/L Chloride 109 105 (98-109) mEq/L Carbon Dioxide 19 24 (19-29) mEq/L BUN 5 L 5 L (7-20) mg/dL Creatinine 0.61 0.62 (0.57-1.11) mg/dL Glucose 154 H 108 H (70-99) mg/dL Calcium 8.0 L 8.1 L (8.6-10.8) mg/dL Calcium panel 03/23/17 03/24/17 Range/Units 14:01 03:08 Calcium 8.0 L 8.1 L (8.6-10.8) mg/dL Pituitary panel 03/23/17 03/24/17 Range/Units 14:01 03:08 Sodium 135 L 136 (136-145) mEq/L Potassium 3.0 L 3.1 L (3.5-4.5) mEq/L Chloride 109 105 (98-109) mEq/L Carbon Dioxide 19 24 (19-29) mEq/L BUN 5 L 5 L (7-20) mg/dL Creatinine 0.61 0.62 (0.57-1.11) mg/dL Glucose 154 H 108 H (70-99) mg/dL Calcium 8.0 L 8.1 L (8.6-10.8) mg/dL Adrenal panel 03/23/17 03/24/17 Range/Units 14:01 03:08 Sodium 135 L 136 (136-145) mEq/L Potassium 3.0 L 3.1 L (3.5-4.5) mEq/L Chloride 109 105 (98-109) mEq/L Carbon Dioxide 19 24 (19-29) mEq/L BUN 5 L 5 L (7-20) mg/dL Creatinine 0.61 0.62 (0.57-1.11) mg/dL Glucose 154 H 108 H (70-99) mg/dL Calcium 8.0 L 8.1 L (8.6-10.8) mg/dL - VTE Documentation of Mechanical Device: Intermittent pneumatic compression device Consult Discharge Plan - Plan Referrals: Priyanka Roach, OPTICAL FABRICATION TECHNICIAN [Primary Care Provider] - <Tacos Starks - Last Filed: 03/25/17 09:07> Date of Encounter: 03/24/17 - Assessment and Plan (1) Hypokalemia Current Visit: Yes Status: Acute Objective Vital Signs - Last 8 Hours Temp Pulse Resp BP Pulse Ox 03/25/17 08:00 98.2 F 134 16 133/77 92 03/25/17 04:31 98.3 F 95 16 116/54 91 Intake and Output 03/24/17 03/25/17 03/25/17 23:59 07:59 15:59 Intake Total 100 / 100 100 / 100 Output Total 1000 / 1000 500 / 500 Balance -900 / -900 -400 / -400 Intake: IV Fluids 100 / 100 100 / 100 Zosyn 3.375 GM In Dextrose 5% ( 100 / 100 100 / 100 Minibag+) 100 ML 100 ML @ 25 mls/hr IVPB Q8H [facility] Rx#: [id number] Output: Urine 1000 / 1000 500 / 500 Other: # Voids 1 Weight 58 kg Patient Weight 03/25/17 23:59 Weight 58 kg - Labs 03/24/17 03:08 03/25/17 05:43 Diabetes panel 03/25/17 Range/Units 05:43 Sodium 136 (136-145) mEq/L Potassium 3.4 L (3.5-4.5) mEq/L Chloride 104 (98-109) mEq/L Carbon Dioxide 23 (19-29) mEq/L BUN 6 L (7-20) mg/dL Creatinine 0.62 (0.57-1.11) mg/dL Glucose 115 H (70-99) mg/dL Calcium 8.3 L (8.6-10.8) mg/dL Calcium panel 03/25/17 Range/Units 05:43 Calcium 8.3 L (8.6-10.8) mg/dL Pituitary panel 03/25/17 Range/Units 05:43 Sodium 136 (136-145) mEq/L Potassium 3.4 L (3.5-4.5) mEq/L Chloride 104 (98-109) mEq/L Carbon Dioxide 23 (19-29) mEq/L BUN 6 L (7-20) mg/dL Creatinine 0.62 (0.57-1.11) mg/dL Glucose 115 H (70-99) mg/dL Calcium 8.3 L (8.6-10.8) mg/dL Adrenal panel 03/25/17 Range/Units 05:43 Sodium 136 (136-145) mEq/L Potassium 3.4 L (3.5-4.5) mEq/L Chloride 104 (98-109) mEq/L Carbon Dioxide 23 (19-29) mEq/L BUN 6 L (7-20) mg/dL Creatinine 0.62 (0.57-1.11) mg/dL Glucose 115 H (70-99) mg/dL Calcium 8.3 L (8.6-10.8) mg/dL - Attending Attestation I examined this patient and my medical decision-making was reviewed with the Resident Physician. I agree with the documented findings, disposition and treatment plan as described except to the extent set forth below. The patient is seen and evaluated on morning rounds with the resident. She has good bowel sounds and is having bowel activity. We will advance her diet. Plan extended-care facility tomorrow Tacos Starks MD FACS
[2017-03-24] MEDS: amLODIPine 5 MG TABLET PO SCH (10:00)
[2017-03-25] MEDS: Piperacillin/Tazobactam 3.375 GM in D5% in Water (Mini-Bag+) 100 ML IVPB SCH ×2 (01:03→08:41)
[2017-03-25] MEDS ORDERED: Piperacillin/Tazobactam 3.375 GM in D5% in Water (Mini-Bag+) 100 ML IVPB SCH (04:00)
[2017-03-25] MEDS: Ipratropium/Albuterol Neb 3 ML IH SCH ×3 (04:46→15:32)
[2017-03-25] MEDS: 0.9 % Sodium Chloride 1,000 ML IVC SCH (04:57)
[2017-03-25] MEDS: Pantoprazole 40 MG VIAL IVP SCH (05:04)
[2017-03-25] MEDS: *HR* Heparin 5,000 UNIT/ML VIAL SQ SCH (05:13)
[2017-03-25 06:04] LABS: BUN/Creatinine Ratio 10 (6-26); Blood Urea Nitrogen 6 mg/dL (7-20); Calcium 8.3 mg/dL (8.6-10.8); Carbon Dioxide 23 mEq/L (19-29); Chloride 104 mEq/L (98-109); Glucose 115 mg/dL (70-99); Osmolality,Calculated 281 (280-300); Potassium 3.4 mEq/L (3.5-4.5); Sodium 136 mEq/L (136-145); eGFR For African Americans > 60 (> 60); eGFR For Non-African Americans > 60 (> 60)
[2017-03-25] MEDS: amLODIPine 5 MG TABLET PO SCH (08:27)
--- NOTE | 2017-03-25 08:39 | General Surgery Progress Note ---
<Karri Chand - Last Filed: 03/25/17 09:44> Date of Encounter: 03/25/17 Time of Encounter: 08:30 - Assessment and Plan (1) Inguinal hernia unilateral, non-recurrent Current Visit: Yes Status: Acute Patient is postop day 7. #1 exploratory laparotomy #2 small bowel resection #3 repair of right femoral hernia on 03/18/[address] Starks. Incision sites are clean, dry, and intact. No drainage. Pathology report showed ischemic bowel, benign small intestine and benign mesenteric fat. Patient is currently on a clear liquid diet and is tolerating it well. Pain has resolved; no pain on deep inspiration. Is passing gas. No distension. Patient had a small bowel movement this morning. -Diet advanced. -Protein supplements TID -Incentive spirometer every 1 hr while awake -Out of bed to chair 3 times a day with assistance -Supportive care/discomfort management -GI prophylaxis -DVT prophylaxis: heparin SQ 5000 Q12hr. -Continue IV Zosyn 3.375. -Morphine 2 mg every 4 hours for pain control. -Social work consulted for therapy prior to discharge. -Discharge pending placement approval to [facility]. Qualifiers: Obstruction and gangrene presence: with obstruction but without gangrene Recurrence: non-recurrent Qualified Code(s): K40.30 - Unilateral inguinal hernia, with obstruction, without gangrene, not specified as recurrent (2) Decreased activity tolerance Current Visit: Yes Status: Acute PT/OT has been consulted for activity, safety, and discharge planning. -Out of bed to chair 3 times per day with assistance. -Patient reports an improvement in her activity tolerance. -Reports being able to get up and go to the sink. -Social work has spoken with patient's family members. (3) Small bowel obstruction Current Visit: Yes Status: Acute (4) DVT prophylaxis Current Visit: Yes Status: Acute Patient is on heparin 5000 SQ q12. (5) Hypokalemia Current Visit: Yes Status: Acute Subjective Patient reports: no new complaints, feels better, pain is less, flatus, bowel movement Narrative: Patient was seen and examined about this morning. Patient states that she is feeling a lot better today. Patient admits to having a bowel movement earlier this morning in that she is passing gas. Patient denies having any new abdominal pain. She also notes that her breathing has greatly improved since admission. She no longer has pain on deep inspiration. No drainage or redness on her incision is present. She has been able to get up out of bed and go to the sink and sit in the chair without difficulty. She reports that the enema she received yesterday was very helpful. Denies nausea, vomiting, fever, chills. Objective Vital Signs - Last 8 Hours Temp Pulse Resp BP Pulse Ox 03/25/17 08:00 98.2 F 134 16 133/77 92 03/25/17 04:31 98.3 F 95 16 116/54 91 Intake and Output 03/24/17 03/25/17 03/25/17 23:59 07:59 15:59 Intake Total 100 / 100 100 / 100 Output Total 1000 / 1000 500 / 500 Balance -900 / -900 -400 / -400 Intake: IV Fluids 100 / 100 100 / 100 Zosyn 3.375 GM In Dextrose 5% ( 100 / 100 100 / 100 Minibag+) 100 ML 100 ML @ 25 mls/hr IVPB Q8H [facility] Rx#: [id number] Output: Urine 1000 / 1000 500 / 500 Other: # Voids 1 Weight 58 kg Patient Weight 03/25/17 23:59 Weight 58 kg - General physical appearance well developed, well nourished, no distress - Neck Neck exam: no masses, trachea midline, no lymphadectomy - Respiratory normal expansion, normal respiratory effort, clear to auscultation - Cardiovascular Cardiovascular exam: Present: RRR, no murmurs/rubs/gallops - Abdomen Abdomen: Present: bowel sounds present, soft, non tender - Psychiatric oriented to time, oriented to person, oriented to place, speech is normal, memory intact - Labs 03/24/17 03:08 03/25/17 05:43 Diabetes panel 03/25/17 Range/Units 05:43 Sodium 136 (136-145) mEq/L Potassium 3.4 L (3.5-4.5) mEq/L Chloride 104 (98-109) mEq/L Carbon Dioxide 23 (19-29) mEq/L BUN 6 L (7-20) mg/dL Creatinine 0.62 (0.57-1.11) mg/dL Glucose 115 H (70-99) mg/dL Calcium 8.3 L (8.6-10.8) mg/dL Calcium panel 03/25/17 Range/Units 05:43 Calcium 8.3 L (8.6-10.8) mg/dL Pituitary panel 03/25/17 Range/Units 05:43 Sodium 136 (136-145) mEq/L Potassium 3.4 L (3.5-4.5) mEq/L Chloride 104 (98-109) mEq/L Carbon Dioxide 23 (19-29) mEq/L BUN 6 L (7-20) mg/dL Creatinine 0.62 (0.57-1.11) mg/dL Glucose 115 H (70-99) mg/dL Calcium 8.3 L (8.6-10.8) mg/dL Adrenal panel 03/25/17 Range/Units 05:43 Sodium 136 (136-145) mEq/L Potassium 3.4 L (3.5-4.5) mEq/L Chloride 104 (98-109) mEq/L Carbon Dioxide 23 (19-29) mEq/L BUN 6 L (7-20) mg/dL Creatinine 0.62 (0.57-1.11) mg/dL Glucose 115 H (70-99) mg/dL Calcium 8.3 L (8.6-10.8) mg/dL - VTE Documentation of Mechanical Device: Intermittent pneumatic compression device Consult Discharge Plan - Plan Referrals: Priyanka Roach, CONSTRUCTION AREA MANAGER [Primary Care Provider] - <Tacos Starks - Last Filed: 03/25/17 10:56> Date of Encounter: 03/24/17 - Assessment and Plan (1) Hypokalemia Current Visit: Yes Status: Acute Objective Vital Signs - Last 8 Hours Temp Pulse Resp BP Pulse Ox 03/25/17 10:11 97.5 F L 76 16 127/70 94 03/25/17 08:00 98.2 F 134 16 133/77 92 03/25/17 04:31 98.3 F 95 16 116/54 91 Intake and Output 03/24/17 03/25/17 03/25/17 23:59 07:59 15:59 Intake Total 100 / 100 100 / 100 Output Total 1000 / 1000 500 / 500 350 / 350 Balance -900 / -900 -400 / -400 -350 / -350 Intake: IV Fluids 100 / 100 100 / 100 Zosyn 3.375 GM In Dextrose 5% ( 100 / 100 100 / 100 Minibag+) 100 ML 100 ML @ 25 mls/hr IVPB Q8H [facility] Rx#: [id number] Output: Urine 1000 / 1000 500 / 500 350 / 350 Other: Stool Size Smear # Voids 1 # Bowel Movements 1 Weight 58 kg Patient Weight 03/25/17 23:59 Weight 58 kg - Labs 03/24/17 03:08 03/25/17 05:43 Diabetes panel 03/25/17 Range/Units 05:43 Sodium 136 (136-145) mEq/L Potassium 3.4 L (3.5-4.5) mEq/L Chloride 104 (98-109) mEq/L Carbon Dioxide 23 (19-29) mEq/L BUN 6 L (7-20) mg/dL Creatinine 0.62 (0.57-1.11) mg/dL Glucose 115 H (70-99) mg/dL Calcium 8.3 L (8.6-10.8) mg/dL Calcium panel 03/25/17 Range/Units 05:43 Calcium 8.3 L (8.6-10.8) mg/dL Pituitary panel 03/25/17 Range/Units 05:43 Sodium 136 (136-145) mEq/L Potassium 3.4 L (3.5-4.5) mEq/L Chloride 104 (98-109) mEq/L Carbon Dioxide 23 (19-29) mEq/L BUN 6 L (7-20) mg/dL Creatinine 0.62 (0.57-1.11) mg/dL Glucose 115 H (70-99) mg/dL Calcium 8.3 L (8.6-10.8) mg/dL Adrenal panel 03/25/17 Range/Units 05:43 Sodium 136 (136-145) mEq/L Potassium 3.4 L (3.5-4.5) mEq/L Chloride 104 (98-109) mEq/L Carbon Dioxide 23 (19-29) mEq/L BUN 6 L (7-20) mg/dL Creatinine 0.62 (0.57-1.11) mg/dL Glucose 115 H (70-99) mg/dL Calcium 8.3 L (8.6-10.8) mg/dL - Attending Attestation I examined this patient and my medical decision-making was reviewed with the Resident Physician. I agree with the documented findings, disposition and treatment plan as described except to the extent set forth below. The patient is seen and evaluated with the rest of the morning rounds. She is progressing well and should be up to go to extended care facility tomorrow. We will continue to work with physical therapy, occupational therapy, and dietary fully support patient prior to discharge. Tacos Starks MD FACS
[2017-03-25 10:17] VITALS: BP 127/70
--- NOTE | 2017-03-25 13:21 | Discharge Summary ---
<Daniella Brand - Last Filed: 03/25/17 13:44> Date of Encounter: 03/25/17 Time of Encounter: 13:19 - Discharge Diagnosis (1) Inguinal hernia unilateral, non-recurrent Priority: Primary Status: Resolved Qualifiers: Obstruction and gangrene presence: with obstruction but without gangrene Recurrence: non-recurrent Qualified Code(s): K40.30 - Unilateral inguinal hernia, with obstruction, without gangrene, not specified as recurrent (2) Small bowel obstruction Priority: Primary Status: Resolved (3) Decreased activity tolerance Priority: Secondary Status: Acute (4) DVT prophylaxis Priority: Secondary Status: Resolved - Discharge Medications Prescriptions: Docusate Sodium [Colace] 100 mg PO BID #30 capsule OxyCODONE/APAP 5/325 [Percocet 5/325 MG] 1 each PO Q6H PRN #28 tablet PRN Reason: Pain Home Medications: amLODIPine [Norvasc] 7.5 mg PO DAILY 03/18/17 [History] Docusate Sodium [Colace] 100 mg PO BID #30 capsule 03/25/17 [Rx] OxyCODONE/APAP 5/325 [Percocet 5/325 MG] 1 each PO Q6H PRN #28 tablet 03/25/17 [ Rx] Allergies/Adverse Reactions: 3 Allergy/AdvReac Type Severity Reaction Status Date / Time Sulfa (Sulfonamide Allergy Hallucinati Verified 03/17/17 21:53 Antibiotics) ng General Surgery Exam Initial Vital Signs Temp Pulse Resp BP Pulse Ox 97.9 F 71 18 161/70 97 03/17/17 21:49 03/17/17 21:49 03/17/17 21:49 03/17/17 21:49 03/17/17 21:49 Date of admission: 03/18/17 01:51 Primary care physician: Priyanka Roach CNP Consults: 03/18/17 04:51 Consult to Pastoral Services [CONS] Routine Comment: 03/19/17 13:28 Consult to Occupational Therapy [CONS] Routine Comment: Evaluate, develop and implement POC Reason for Consult: s/p open hernia repair and SBR 03/18/2017 Consult to Physical Therapy [CONS] Routine Comment: Evaluate, develop and implement POC Reason for Consult: s/p open hernia repair and SBR 03/18/2017 03/19/17 13:29 Consult to Case Management [CONS] Routine Comment: s/p open hernia repair and SBR 03/18/2017 03/24/17 11:31 Consult to Junior Underwriter [CONS] Routine Reason for SW Consult: Patient will need d/c rehab Discharging clinician: Tacos Domínguez) Anticipated date of discharge: 03/25/17 - Patient Status Disposition: Transfer SNF Condition: Fair Functional capacity at discharge: uses cane/walker Overall status at discharge: patient is progressing back to baseline - Discharge Instructions Follow Up With: Priyanka Roach, BRUSH OPERATOR [Primary Care Provider] - Guerline Mead CNP [Advanced Practice Nurse] - 03/30/17 8:40 am Additional Instructions: General Surgical Discharge Instructions 1. No pushing, pulling, or lifting greater than 15 lbs for 6 weeks. 2. You may shower beginning today, but no tub baths, soaking, or swimming for 2 weeks. 3. You may resume driving when you are off narcotics and are safe to react in a car. 4. Take narcotics as directed. Do not take more narcotics then directed and do not share your narcotics with any other person. Do not drink alcohol while on narcotics. 5. Take stool softeners (Colace) or a water based laxative (Miralax) while taking narcotics. You may hold for loose stools. 6. Report any fevers greater than 100.5F, increase abdominal discomfort, drainage that looks like pus, increased redness or pain at the surgical site, or any vomiting. 7. Report any pain in the calves, shortness of breath, or rapid heartbeat. 8. Follow-up in the office as directed. 9. If you were prescribed antibiotics, do not stop them without talking to your provider. - Diet and Activity Activity: increase activity as tolerated Diet: advance to your usual diet - Hospital Course Hospital course: Ms. Sharp is a 89 year old female who presented on 03/17/2017 for complaints of sudden onset of right groin pain in a small lump in her right groin. CT of the abdomen pelvis with IV and oral contrast was obtained which indicated and incarcerated right for moral hernia containing a loop of small bowel with associated ups dream small bowel obstruction. Measuring approximately 3.2 cm in diameter. She was therefore taken to the operating room for exploratory laparotomy, small bowel resection, repair a right femoral hernia on 03/18/[address] Starks. Her hospital course has been relatively uncomplicated with the exception of generalized deconditioning for which she is recommended inpatient rehab. Her pathology reported ischemic bowel, benign small intestine and benign mesenteric fat. She is tolerating a soft diet with protein supplements, ambulating and forwarding without difficulty(with assistance), her vital signs are stable, and she has afebrile. We will begin discharge planning to inpatient rehab with a follow-up in the office in 2 weeks. - Time Spent with Patient Total time spent providing and/or coordinating discharge services: Labs on day of discharge: Labs from last 24 hours 03/25/17 05:43 Sodium 136 Potassium 3.4 L Chloride 104 Carbon Dioxide 23 BUN 6 L Creatinine 0.62 Est GFR ( Amer) > 60 Est GFR (Non-Af Amer) > 60 BUN/Creatinine Ratio 10 Glucose 115 H Calculated Osmolality 281 Calcium 8.3 L - Impressions ITS Impressions Chest X-Ray 03/20/17 14:11 IMPRESSION: No acute process. D/ : / 03/20/2017 14:44:00 Lb Brambila MD / idania Interpreting Provider: Lb Brambila MD <Tacos Starks - Last Filed: 03/25/17 18:38> Date of Encounter: 03/25/17 - Discharge Diagnosis (1) Hypokalemia Status: Acute General Surgery Exam Initial Vital Signs Temp Pulse Resp BP Pulse Ox 97.9 F 71 18 161/70 97 03/17/17 21:49 03/17/17 21:49 03/17/17 21:49 03/17/17 21:49 03/17/17 21:49 Date of admission: 03/18/17 01:51 Primary care physician: Priyanka Roach CNP Consults: 03/18/17 04:51 Consult to Pastoral Services [CONS] Routine Comment: 03/19/17 13:28 Consult to Occupational Therapy [CONS] Routine Comment: Evaluate, develop and implement POC Reason for Consult: s/p open hernia repair and SBR 03/18/2017 Consult to Physical Therapy [CONS] Routine Comment: Evaluate, develop and implement POC Reason for Consult: s/p open hernia repair and SBR 03/18/2017 03/19/17 13:29 Consult to Case Management [CONS] Routine Comment: s/p open hernia repair and SBR 03/18/2017 03/24/17 11:31 Consult to Junior Underwriter [CONS] Routine Reason for SW Consult: Patient will need d/c rehab - Hospital Course Hospital course: Ms. Sharp is a 89 year old female - Time Spent with Patient Total time spent providing and/or coordinating discharge services: Labs on day of discharge: Labs from last 24 hours 03/25/17 05:43 Sodium 136 Potassium 3.4 L Chloride 104 Carbon Dioxide 23 BUN 6 L Creatinine 0.62 Est GFR ( Amer) > 60 Est GFR (Non-Af Amer) > 60 BUN/Creatinine Ratio 10 Glucose 115 H Calculated Osmolality 281 Calcium 8.3 L - Impressions ITS Impressions Chest X-Ray 03/20/17 14:11 IMPRESSION: No acute process. D/ / 03/20/2017 14:44:00 Lb Brambila MD / idania Interpreting Provider: Lb Brambila MD - Attending Attestation I have personally performed a face to face evaluation on this patient. I have reviewed and agree with the care plan. History and Exam by me shows: This patient is seen and evaluated on morning rounds. Her pain control is excellent. She is tolerating diet. The incisions look good. She is ready for discharge to be rehabilitation facility. I will see her next week in follow-up. Tacos Starks MD FACS
--- NOTE | 2017-03-25 13:25 | Physician Discharge Referral ---
<Daniella Brand - Last Filed: 03/25/17 13:22> ExtendedCare Referral Info Transfer To: [facility] Provider in Charge: Dr. Tacos Starks Institutional Level of Care: Skilled - Diagnosis (1) Inguinal hernia unilateral, non-recurrent Priority: Primary Status: Resolved (2) Small bowel obstruction Priority: Primary Status: Resolved (3) Decreased activity tolerance Priority: Secondary Status: Acute (4) DVT prophylaxis Priority: Secondary Status: Acute - Transfer Medications Prescriptions: Docusate Sodium [Colace] 100 mg PO BID #30 capsule OxyCODONE/APAP 5/325 [Percocet 5/325 MG] 1 each PO Q6H PRN #28 tablet PRN Reason: Pain Home Medications: amLODIPine [Norvasc] 7.5 mg PO DAILY 03/18/17 [History] Docusate Sodium [Colace] 100 mg PO BID #30 capsule 03/25/17 [Rx] OxyCODONE/APAP 5/325 [Percocet 5/325 MG] 1 each PO Q6H PRN #28 tablet 03/25/17 [ Rx] Allergies/Adverse Reactions: 3 Allergy/AdvReac Type Severity Reaction Status Date / Time Sulfa (Sulfonamide Allergy Hallucinati Verified 03/17/17 21:53 Antibiotics) ng - Respiratory Orders Smoking Cessation: Smoking cessation has been advised. For more information, call the [employer] Tobacco Quit Line at 0-054-ADNTNOW. - Ancillary Orders May use pressure relief devices daily prn - Advance Directives Living Will: No Power of [employer] Principal: No Code Status: Full Code - Mobility Orders Ambulate - Rehabiliation Orders Rehab Potential: Good Rehab Orders: ROM Exercises, Evaluation for Physical Therapy, Evaluation for Occupational Therapy Other: General Surgical Discharge Instructions 1. No pushing, pulling, or lifting greater than 15 lbs for two weeks. 2. You may shower beginning today, but no tub baths, soaking, or swimming for 2 weeks. 3. You may resume driving when you are off narcotics and are safe to react in a car. 4. Take narcotics as directed. Do not take more narcotics then directed and do not share your narcotics with any other person. Do not drink alcohol while on narcotics. 5. Take stool softeners (Colace) or a water based laxative (Miralax) while taking narcotics. You may hold for loose stools. 6. Report any fevers greater than 100.5F, increase abdominal discomfort, drainage that looks like pus, increased redness or pain at the surgical site, or any vomiting. 7. Report any pain in the calves, shortness of breath, or rapid heartbeat. 8. Follow-up in the office as directed. 9. If you were prescribed antibiotics, do not stop them without talking to your provider. - Treatments Skin tear care topically daily PRN per policy - Diet Orders Regular CERTIFICATION: I certify that the transfer of the above named patient to an Extended Care Facility is necessary for the continuing treatment of the diagnosis listed. The above information is true and accurate reflection of patient's current condition. Confidential - Redisclosure prohibited without a patient's written consent. <Tacos Starks - Last Filed: 03/25/17 18:37> - Diagnosis (1) Hypokalemia Status: Acute - Respiratory Orders Smoking Cessation: Smoking cessation has been advised. For more information, call the [place] Tobacco Quit Line at 1-442-NDYH-NOW. CERTIFICATION: I certify that the transfer of the above named patient to an Extended Care Facility is necessary for the continuing treatment of the diagnosis listed. The above information is true and accurate reflection of patient's current condition. Confidential - Redisclosure prohibited without a patient's written consent.
== END 2017-03-25 17:12 | DRG 329 ==
LOC: EMEROO 21:42 → 3ANU 03-18 01:51
PROVIDERS: ADMIT Surgery; ATTEND Surgery